=== PATIENT | female | born 1950 | race Caucasian/White ===

== ENCOUNTER 2016-12-27 19:59 | Emergency (ER) | payer BC ==
[~2016-12-27] VITALS: Ht 157.5 cm; Wt 82.6 kg
[~2016-12-27 19:59] MED LIST: SYN25 PO
[2016-12-27 20:08] VITALS: TEMP 36.4; Ht 157.5 cm; Wt 82.6 kg
[2016-12-27] MEDS ORDERED: METR-162 PO (20:41)
[2016-12-27] MEDS ORDERED: CPR/500 PO (20:41)
[2016-12-27 20:51] LABS: BASO % 0.2 %; BASO ABS # 0.02 K/uL (0-0.2); COMPLETE YES; EOS % 4.1 %; HEMATOCRIT 35.8 % (37-47); IG% 0.3 %; LYMPH % 15.6 %; LYMPH ABS # 1.49 K/uL (1.2-3.4); MEAN CELL VOLUME 86.9 fL (80-100); MEAN CORPUSCULAR HEMOGLOBIN 29.6 pg (25-34); MEAN CORPUSCULAR HGB CONC 34.1 g/dl (32-36); MEAN PLATELET VOLUME 10.1 fL (7.4-10.4); MONO % 10.9 %; NEUT % 68.9 %; PLATELET COUNT 228 K/uL (130-400); RED BLOOD COUNT 4.12 M/uL (4.2-5.4); WHITE BLOOD COUNT 9.58 K/uL (4.8-10.8)
[2016-12-27 21:07] LABS: URINE APPEARANCE CLEAR (CLEAR); URINE BILIRUBIN NEG (NEG); URINE COLOR YELLOW; URINE EPITHELIAL CELL AUTO >30 /lpf (0-5); URINE NITRITE NEG (NEG); URINE PH 5.5 (4.5-7.5); URINE SPECIFIC GRAVITY 1.023 (1.000-1.030); UROBILINOGEN NEG (NEG); ZZUR CULT IF INDIC CLEAN CATCH YES
[2016-12-27 21:09] LABS: BUN/CREATININE RATIO 23.7 (10-20); CALCIUM 8.9 mg/dl (8.5-10.1); CREATININE 0.87 mg/dl (0.60-1.20)
[2016-12-27 21:11] LABS: ALB/GLOB RATIO 0.9 (0.9-2)
[2016-12-27 21:11] LABS: MANUAL MICROSCOPIC REQUIRED? NO; REVIEW REQ? NO
[2016-12-27] MEDS ORDERED: MoRPHine SULFATE 2 MG/ML CARP IV STA (21:18)
[2016-12-27] MEDS ORDERED: ONDANSETRON INJ 2 MG/ML 2 ML VIAL IV STA (21:18)
[2016-12-27] MEDS ORDERED: SODIUM CHLORIDE 0.9% 1000ML 1,000 ML IV STA (21:18)
--- NOTE | 2016-12-27 21:21 | EMERGENCY ROOM VISIT NOTE ---
History Report prepared by Katt: Lefty Israel Under the Supervision of: Dr. Zohreh Mukherjee M.D. First contact with patient: 21:04 Chief Complaint: ABDOMINAL PAIN Stated Complaint: ABDOMEN PAIN, THROWING UP Nursing Triage Summary: pt c/o abd pain since the weekend. reports hx of diverticulitis. put on flagyl and cipro by PCP. pt reports today "i started vomiting, i don't know if it's from the medication or this." reports left sided pain radiating across to the right. pt alert and oriented x4. breathing WNL. History of Present Illness The patient is a 66 year old female who presents to the Emergency Room with complaints of LLQ abdominal pain that began a couple of days ago. The patient rates her pain moderate in severity. The patient has a history of diverticulitis. She was placed on Flagyl and Cipro by her PCP three days ago. She notes that she still does not feel any better today, with pain still in the area. She has been experiencing nausea, vomiting, and weakness. This last time she vomited was this morning at 0900. She believes the vomiting is from her antibiotics. She denies any fever, diarrhea, melena, or hematochezia. Source of History: patient Onset: a couple of days ago Position: abdomen (LLQ) Symptom Intensity: moderate Quality: ache Timing: constant Associated Symptoms: + nausea, + vomiting, No fevers, No melena, No hematochezia, No diarrhea Review of Systems See HPI for pertinent positives & negatives. A total of 10 systems reviewed and were otherwise negative. Past Medical & Surgical Medical Problems: (1) Deliveries by (2) Hypothyroidism (3) Vaginal hysterectomy Family History Omitted secondary to the patient's age. Social History Smoking Status: Never Smoker Smokeless Tobacco Use: No Alcohol Use: none Drug Use: none Marital Status: Occupation Status: employed Current/Historical Medications Scheduled Amoxicillin & Pot Clavulanate (Augmentin 875-125 mg), 875 MG PO BID Ciprofloxacin (Ciprofloxacin HCl), 500 MG PO BID Levothyroxine Sodium (Levothyroxine Sodium), 88 MCG PO DAILY Metronidazole (Flagyl), 500 MG PO TID Pseudoephedrine-Naproxen Sodiu (Aleve-D Sinus & Cold), 1 TAB PO DAILY Allergies Coded Allergies: No Known Allergies (Unverified , 12/27/16) Physical Exam Vital Signs Date Time Temp Pulse Resp B/P (MAP) Pulse Ox O2 Delivery O2 Flow Rate FiO2 12/27/16 23:03 73 17 97 12/27/16 22:04 82 18 147/83 97 Room Air 12/27/16 20:08 36.4 84 18 158/83 96 Room Air Physical Exam Vital signs reviewed. General: Well-appearing female, in no significant distress. HEENT: No scleral icterus, PERRLA, neck supple. Atraumatic. Cardiovascular: Regular rate and rhythm, no extra sounds. Pulmonary: Clear to auscultation bilaterally, normal work of breathing. Abdomen: Soft, tender to the left lower quadrant and epigastrium, obese, positive bowel sounds. Musculoskeletal: Atraumatic, no peripheral edema. Neurologic: Patient awake alert and oriented x 3, full strength in all 4 extremities. Cranial nerves 2 through 12 grossly intact. Skin: Warm, dry, no rash Medical Decision & Procedures ER Provider Diagnostic Interpretation: Radiology results as stated below per my review and radiologist interpretation: CT ABD/PELVIS IV CONTRAST ONLY CLINICAL HISTORY: Abdominal pain. Possible diverticulitis. COMPARISON STUDY: None. TECHNIQUE: Following the IV administration of 120 mL of Optiray-320, CT scan of the abdomen and pelvis was performed from the lung bases to the proximal femurs. Images are reviewed in the axial, sagittal, and coronal planes. IV contrast was administered without complication. A dose lowering technique was utilized adhering to the principles of ALARA. CT DOSE: 548.93 mGy.cm FINDINGS: Lower chest: There are basilar atelectatic changes. A 15 mm parenchymal opacity abutting the mediastinum with thin the right middle lobe, likely represents focal atelectatic change. Liver: The contrast-enhanced liver is normal in size, contour, and attenuation. There is no intrahepatic biliary ductal dilatation. The hepatic veins and portal veins are patent. Gallbladder: Unremarkable. Spleen: Normal in size and attenuation. Pancreas: Unremarkable. Adrenal glands: Unremarkable. Kidneys: There is symmetric renal cortical enhancement. The kidneys are normal in size without hydronephrosis. Bowel: There are no transition zones indicate bowel obstruction. By history the appendix is absent. There is colonic diverticulosis. There is colon wall thickening and infiltration of the fat at the descending sigmoid junction. The findings are consistent with acute diverticulitis. There are no fluid collections to indicate an abscess. Peritoneum: There is no intraperitoneal free air or abdominal ascites. Vasculature: The abdominal aorta is normal in course and caliber. Adenopathy: There are small nonpathologically enlarged para-aortic and left iliac lymph nodes. Pelvic viscera: The uterus appears surgically absent Skeletal structures: No destructive osseous lesions are seen. IMPRESSION: Acute diverticulitis at the descending sigmoid junction. Electronically signed by: Leland Preciado M.D. 12/27/2016 9:58 PM Dictated Date/Time: 12/27/2016 9:55 PM Laboratory Results 12/27/16 20:35 Red Blood Count 4.12, Mean Corpuscular Volume 86.9, Mean Corpuscular Hemoglobin 29.6, Mean Corpuscular Hemoglobin Concent 34.1, Mean Platelet Volume 10.1, Neutrophils (%) (Auto) 68.9, Lymphocytes (%) (Auto) 15.6, Monocytes (%) (Auto) 10.9, Eosinophils (%) (Auto) 4.1, Basophils (%) (Auto) 0.2, Neutrophils # (Auto ) 6.61, Lymphocytes # (Auto) 1.49, Monocytes # (Auto) 1.04, Eosinophils # (Auto ) 0.39, Basophils # (Auto) 0.02 12/27/16 20:35 Test 12/27/16 20:25 12/27/16 20:35 Urine Color YELLOW Urine Appearance CLEAR (CLEAR) Urine pH 5.5 (4.5-7.5) Urine Specific [place] 1.023 (1.000-1.030) Urine Protein NEG (NEG) Urine Glucose (UA) NEG (NEG) Urine Ketones NEG (NEG) Urine Occult Blood NEG (NEG) Urine Nitrite NEG (NEG) Urine Bilirubin NEG (NEG) Urine Urobilinogen NEG (NEG) Urine Leukocyte Esterase SMALL (NEG) Urine WBC (Auto) 10-30 /hpf (0-5) Urine RBC (Auto) 0-4 /hpf (0-4) Urine Hyaline Casts (Auto) 1-5 /lpf (0-5) Urine Epithelial Cells (Auto) >30 /lpf (0-5) Urine Bacteria (Auto) NEG (NEG) White Blood Count 9.58 K/uL (4.8-10.8) Red Blood Count 4.12 M/uL (4.2-5.4) Hemoglobin 12.2 g/dL (12.0-16.0) Hematocrit 35.8 % (37-47) Mean Corpuscular Volume 86.9 fL (80-100) Mean Corpuscular Hemoglobin 29.6 pg (25-34) Mean Corpuscular Hemoglobin Concent 34.1 g/dl (32-36) Platelet Count 228 K/uL (130-400) Mean Platelet Volume 10.1 fL (7.4-10.4) Neutrophils (%) (Auto) 68.9 % Lymphocytes (%) (Auto) 15.6 % Monocytes (%) (Auto) 10.9 % Eosinophils (%) (Auto) 4.1 % Basophils (%) (Auto) 0.2 % Neutrophils # (Auto) 6.61 K/uL (1.4-6.5) Lymphocytes # (Auto) 1.49 K/uL (1.2-3.4) Monocytes # (Auto) 1.04 K/uL (0.11-0.59) Eosinophils # (Auto) 0.39 K/uL (0-0.5) Basophils # (Auto) 0.02 K/uL (0-0.2) RDW Standard Deviation 42.9 fL (36.4-46.3) RDW Coefficient of Variation 13.4 % (11.5-14.5) Immature Granulocyte % (Auto) 0.3 % Immature Granulocyte # (Auto) 0.03 K/uL (0.00-0.02) Anion Gap 7.0 mmol/L (3-11) Est Creatinine Clear Calc Drug Dose 65.1 ml/min Estimated GFR () 81.6 Estimated GFR (Non- 70.4 BUN/Creatinine Ratio 23.7 (10-20) Calcium Level 8.9 mg/dl (8.5-10.1) Total Bilirubin 0.2 mg/dl (0.2-1) Aspartate Amino Transf (AST/SGOT) 16 U/L (15-37) Alanine Aminotransferase (ALT/SGPT) 17 U/L (12-78) Alkaline Phosphatase 103 U/L (45-117) Total Protein 6.8 gm/dl (6.4-8.2) Albumin 3.3 gm/dl (3.4-5.0) Globulin 3.5 gm/dl (2.5-4.0) Albumin/Globulin Ratio 0.9 (0.9-2) Lipase 146 U/L (73-393) Laboratory results per my review. Medications Administered Medications (Trade) Dose Ordered Sig/Mary Route Start Time Stop Time Status Last Admin Dose Admin Sodium Chloride 1,000 ml @ 999 mls/hr Q1H1M STAT IV 12/27/16 21:18 12/27/16 22:18 DC 12/27/16 21:30 999 MLS/HR Ondansetron HCl (Zofran Inj) 4 mg NOW STAT IV 12/27/16 21:18 12/27/16 21:20 DC 12/27/16 21:31 4 MG Ampicillin Sodium/ Sulbactam Sodium 3000 mg/Sodium Chloride 108 ml @ 200 mls/hr ONE ONCE IV 12/27/16 22:15 12/27/16 22:47 DC 12/27/16 22:24 200 MLS/HR ED Course 2103: Past medical records reviewed. The patient was evaluated in room A4. A complete history and physical examination was performed. 8: Ordered Morphine Sulfate 2 mg IV, Zofran Inj 4 mg IV, Sodium Chloride 1000 ml @ 999 mls/hr IV 5: Ordered Ampicillin Sodium/ Sulbactam Sodium 3,000 mg/Sodium 108 ml @ 200 mls/hr IV 2250: Upon reevaluation, the patient appeared to have improvement of her symptoms. I discussed findings with her. She verbalized agreement of the treatment plan. She was discharged home. Medical Decision Differential diagnosis: Etiologies such as appendicitis, diverticulitis, PUD, biliary pathology, UTI, pancreatitis, obstruction, mesenteric ischemia, aortic pathology, infections, inflammatory bowel disease, renal colic, as well as others were entertained. This patient was evaluated and appeared to be in some discomfort. IV access was obtained and laboratory work was drawn. The patient was hydrated with normal saline solution. She was medicated with Zofran for nausea. Laboratory work reveals a normal white blood cell count. CT scan of the abdomen and pelvis reveals an acute sigmoid diverticulitis. There is no perforation or abscess collection. Patient was given Unasyn 3 g IV. She was discharged with a prescription for Augmentin 875 mg twice a day for 7 days. She was advised to stop the Cipro and Flagyl as she does not seem to be tolerating this well. She will follow-up with her physician this week for reevaluation return to the ER for worsening of symptoms or any medical concerns. Medication Reconcilliation Current Medication List: was personally reviewed by me Blood Pressure Screening Patient's blood pressure: Elevated blood pressure Blood pressure disposition: Elevated BP felt to be situational Impression Primary Impression: Diverticulitis Scribe Attestation The scribe's documentation has been prepared under my direction and personally reviewed by me in its entirety. I confirm that the note above accurately reflects all work, treatment, procedures, and medical decision making performed by me. Departure Information Dispostion Home / Self-Care Prescriptions Amoxicillin & Pot Clavulanate (Augmentin 875-125 mg) 1 Tab Tab 875 MG PO BID for 7 Days, #14 TAB Prov: Zohreh Mukherjee M.D. 12/27/16 Referrals Kelsey Carty M.D. (PCP) Forms HOME CARE DOCUMENTATION FORM, IMPORTANT VISIT INFORMATION Patient Instructions Diverticulosis Diverticulitis, My [facility] Additional Instructions Diagnosis: Diverticulitis Stop cipro/flagyl as you are not tolerating it well. Augmentin 875 mg twice daily for 7 days. Maintain a low residue diet for 1 week Follow up with your doctor this week for reevaluation. Return to the ED for worsening of symptoms or any medical concerns.
[2016-12-27] MEDS ORDERED: OPTIRAY 320 IV PRN (21:30)
--- NOTE | 2016-12-27 22:00 | DIAGNOSTIC IMAGING REPORT ---
CT ABD/PELVIS IV CONTRAST ONLY CLINICAL HISTORY: Abdominal pain. Possible diverticulitis. COMPARISON STUDY: None. TECHNIQUE: Following the IV administration of 120 mL of Optiray-320, CT scan of the abdomen and pelvis was performed from the lung bases to the proximal femurs. Images are reviewed in the axial, sagittal, and coronal planes. IV contrast was administered without complication. A dose lowering technique was utilized adhering to the principles of ALARA. CT DOSE: 548.93 mGy.cm FINDINGS: Lower chest: There are basilar atelectatic changes. A 15 mm parenchymal opacity abutting the mediastinum with thin the right middle lobe, likely represents focal atelectatic change. Liver: The contrast-enhanced liver is normal in size, contour, and attenuation. There is no intrahepatic biliary ductal dilatation. The hepatic veins and portal veins are patent. Gallbladder: Unremarkable. Spleen: Normal in size and attenuation. Pancreas: Unremarkable. Adrenal glands: Unremarkable. Kidneys: There is symmetric renal cortical enhancement. The kidneys are normal in size without hydronephrosis. Bowel: There are no transition zones indicate bowel obstruction. By history the appendix is absent. There is colonic diverticulosis. There is colon wall thickening and infiltration of the fat at the descending sigmoid junction. The findings are consistent with acute diverticulitis. There are no fluid collections to indicate an abscess. Peritoneum: There is no intraperitoneal free air or abdominal ascites. Vasculature: The abdominal aorta is normal in course and caliber. Adenopathy: There are small nonpathologically enlarged para-aortic and left iliac lymph nodes. Pelvic viscera: The uterus appears surgically absent Skeletal structures: No destructive osseous lesions are seen. IMPRESSION: Acute diverticulitis at the descending sigmoid junction. Electronically signed by: Leland Preciado M.D. 12/27/2016 9:58 PM Dictated Date/Time: 12/27/2016 9:55 PM
[2016-12-27 22:04] VITALS: BP 147/83
[2016-12-27] MEDS ORDERED: AMPICILLIN/SULBACTAM SOD INJ 3,000 MG in SODIUM CHLORIDE 0.9% 100ML 100 ML IV ONE (22:15)
[2016-12-27] MEDS ORDERED: AMOX875T PO (22:32)
[2016-12-27 23:03] VITALS: PULSE 73; O2SAT 97
== END 2016-12-27 23:10 | disposition home or self-care (01) ==
LOC: C.EDB 20:01 → C.EDA 23:10
DX: K57.32 Diverticulitis of large intestine without perforation or abscess without bleeding (principal); E03.9 Hypothyroidism, unspecified

== ENCOUNTER 2017-01-05 17:39 | Emergency (ER) | payer BC ==
[~2017-01-05] VITALS: Ht 157.5 cm; Wt 81.8 kg
[~2017-01-05 17:39] MED LIST changes: +CPR/500 PO; +METR-162 PO; -SYN25 PO
[2017-01-05 17:50] VITALS: TEMP 37.1; Ht 157.5 cm; Wt 81.8 kg
[2017-01-05] MEDS ORDERED: IBUPROFEN 600 MG TAB PO STA (19:22)
[2017-01-05] MEDS ORDERED: METOCLOPRAMIDE HCL INJ 5 MG/ML 2 ML VIAL IV STA (19:22)
[2017-01-05] MEDS ORDERED: SODIUM CHLORIDE 0.9% 1000ML 1,000 ML IV STA (19:22)
[2017-01-05] MEDS ORDERED: ACETAMINOPHEN 500 MG TAB PO STA (19:22)
[2017-01-05] MEDS ORDERED: MoRPHine SULFATE 4 MG/ML 1 ML CARP\\VIAL IV STA (19:22)
--- NOTE | 2017-01-05 19:24 | EMERGENCY ROOM VISIT NOTE ---
History Report prepared by Katt: [facility] Under the Supervision of: Dr. Mushtaq Thorpe M.D. First contact with patient: 18:44 Chief Complaint: PAIN (GENERALIZED) Stated Complaint: BACK AND STOMACH PAIN History of Present Illness The patient is a 66 year old white female with a past medical history of hyperthyroidism who presents to the ED with a cc of worsening abdominal pain beginning 2 weeks [employer]. Positive left sided back pain, left leg pain, nausea, vomiting. Negative fever, diarrhea. She rates her pain as a 5/10 in severity. Aleve has provided no relief. She reports she had diverticulitis approximately 2 weeks ago and was placed on antibiotics. She finished the antibiotics and states "I never got better". She denies any history of Zoster. Source of History: patient Onset: 2 weeks [employer] Position: abdomen Symptom Intensity: 5/10 Timing: worsening Modifying Factors (Relieving): ibuprofen (Aleve) Associated Symptoms: + nausea, + vomiting, + back pain, No fevers, No diarrhea Review of Systems See HPI for pertinent positives and negatives. A total of ten systems were reviewed and were otherwise negative. Past Medical & Surgical Medical Problems: (1) Deliveries by (2) Hypothyroidism (3) Vaginal hysterectomy Social History Smoking Status: Never Smoker Alcohol Use: none Drug Use: none Marital Status: Housing Status: lives with family Occupation Status: employed Current/Historical Medications Scheduled Levothyroxine Sodium (Levothyroxine Sodium), 88 MCG PO DAILY Pseudoephedrine-Naproxen Sodiu (Aleve-D Sinus & Cold), 1 TAB PO DAILY Scheduled PRN Tramadol (Ultram), 50 MG PO Q8H PRN for Pain Allergies Coded Allergies: No Known Allergies (Unverified , 12/27/16) Physical Exam Vital Signs Date Time Temp Pulse Resp B/P (MAP) Pulse Ox O2 Delivery O2 Flow Rate FiO2 01/05/17 20:52 80 18 141/91 94 01/05/17 17:50 37.1 89 20 140/80 98 Room Air Physical Exam GENERAL: Awake, alert, well-appearing, NAD HENT: Normocephalic, atraumatic. EYES: Normal conjunctiva. Sclera non-icteric. NECK: Supple. No nuchal rigidity. FROM. RESPIRATORY: CTAB, no rhonchi, wheezing, crackles CARDIAC: RRR, no MRG ABDOMEN: Soft, diffuse mild abdominal pain, greatest in suprapubic area, negative obturator's and psoas, BS+ MSK: Left sided CVA tenderness to palpation. No chest wall TTP, no LE edema NEURO: GCS 15, CN 2-12 intact, moves all 4s on command SKIN: No jaundice noted. No erythema, no calor, no vesicles or rash present. Medical Decision & Procedures ER Provider Diagnostic Interpretation: Radiology results as stated below per my review and radiologist interpretation: ABD/PELVIS IV CONTRAST ONLY HISTORY: 66 years-old Female L sided CVATTP, diffuse ab pain acute generalized abdominal pain. Left flank pain dorsal reported. Initial study. COMPARISON: CT abdomen and pelvis 12/27/2016 TECHNIQUE: Multiple axial CT images of the abdomen and pelvis were obtained following the intravenous administration of 91 mL Optiray 320. A dose lowering technique was used consistent with the principals of SOURAV. FINDINGS: Minimal dependent bibasilar atelectasis. No pneumoperitoneum. Imaged heart is unremarkable. Liver, spleen, pancreas, gallbladder and adrenals are within normal limits. Kidneys, ureters, or bladder are unremarkable. Prior hysterectomy. Abdominal aorta is normal in course and caliber. No bulky adenopathy. No bowel junction. There is improved bowel wall thickening with only minimal persistent surrounding inflammatory stranding of the colon at the sigmoid descending junction compatible with resolving diverticulitis. No abscess or perforation. Prior appendectomy. Soft tissues are unremarkable. Bones are intact. IMPRESSION: 1. Findings compatible with resolving diverticulitis at the descending sigmoid colon junction with only minimal residual inflammatory changes. 2. Prior appendectomy. The above report was generated using voice recognition software. It may contain grammatical, syntax or spelling errors. Electronically signed by: Basil Grant M.D. 01/05/2017 8:17 PM Laboratory Results 01/05/17 19:40 Red Blood Count 4.67, Mean Corpuscular Volume 86.7, Mean Corpuscular Hemoglobin 28.5, Mean Corpuscular Hemoglobin Concent 32.8, Mean Platelet Volume 9.7, Neutrophils (%) (Auto) 66.6, Lymphocytes (%) (Auto) 21.5, Monocytes (%) (Auto) 7.7, Eosinophils (%) (Auto) 3.3, Basophils (%) (Auto) 0.6, Neutrophils # (Auto) 5.31, Lymphocytes # (Auto) 1.71, Monocytes # (Auto) 0.61, Eosinophils # (Auto) 0.26, Basophils # (Auto) 0.05 Test 01/05/17 19:30 01/05/17 19:40 01/05/17 19:46 Urine Color YELLOW Urine Appearance CLEAR (CLEAR) Urine pH 6.0 (4.5-7.5) Urine Specific [place] 1.016 (1.000-1.030) Urine Protein NEG (NEG) Urine Glucose (UA) NEG (NEG) Urine Ketones NEG (NEG) Urine Occult Blood NEG (NEG) Urine Nitrite NEG (NEG) Urine Bilirubin NEG (NEG) Urine Urobilinogen NEG (NEG) Urine Leukocyte Esterase NEG (NEG) Urine WBC (Auto) 1-5 /hpf (0-5) Urine RBC (Auto) 0-4 /hpf (0-4) Urine Hyaline Casts (Auto) 0 /lpf (0-5) Urine Epithelial Cells (Auto) 10-20 /lpf (0-5) Urine Bacteria (Auto) NEG (NEG) White Blood Count 7.96 K/uL (4.8-10.8) Red Blood Count 4.67 M/uL (4.2-5.4) Hemoglobin 13.3 g/dL (12.0-16.0) Hematocrit 40.5 % (37-47) Mean Corpuscular Volume 86.7 fL (80-100) Mean Corpuscular Hemoglobin 28.5 pg (25-34) Mean Corpuscular Hemoglobin Concent 32.8 g/dl (32-36) Platelet Count 263 K/uL (130-400) Mean Platelet Volume 9.7 fL (7.4-10.4) Neutrophils (%) (Auto) 66.6 % Lymphocytes (%) (Auto) 21.5 % Monocytes (%) (Auto) 7.7 % Eosinophils (%) (Auto) 3.3 % Basophils (%) (Auto) 0.6 % Neutrophils # (Auto) 5.31 K/uL (1.4-6.5) Lymphocytes # (Auto) 1.71 K/uL (1.2-3.4) Monocytes # (Auto) 0.61 K/uL (0.11-0.59) Eosinophils # (Auto) 0.26 K/uL (0-0.5) Basophils # (Auto) 0.05 K/uL (0-0.2) RDW Standard Deviation 43.5 fL (36.4-46.3) RDW Coefficient of Variation 13.7 % (11.5-14.5) Immature Granulocyte % (Auto) 0.3 % Immature Granulocyte # (Auto) 0.02 K/uL (0.00-0.02) Total Bilirubin 0.2 mg/dl (0.2-1) Direct Bilirubin < 0.1 mg/dl (0-0.2) Aspartate Amino Transf (AST/SGOT) 18 U/L (15-37) Alanine Aminotransferase (ALT/SGPT) 21 U/L (12-78) Alkaline Phosphatase 111 U/L (45-117) Total Protein 7.8 gm/dl (6.4-8.2) Albumin 3.8 gm/dl (3.4-5.0) Lipase 167 U/L (73-393) Bedside Hemoglobin 13.6 g/dl (12.0-16.0) Bedside Hematocrit 40 % (37-47) Bedside Sodium 139 mEq/L (135-144) Bedside Potassium 4.1 mEq/L (3.3-5.0) Bedside Chloride 102 mEq/L (101-112) Bedside Total CO2 27 mEq/l (24-31) Anion Gap 15.0 mmol/L (16-25) Bedside Blood Urea Nitrogen 21 mg/dl (7-18) Bedside Creatinine 0.9 mg/dl (0.6-1.3) Bedside Glucose (other) 96 mg/dl (70-99) Bedside Ionized Calcium (Danielle) 1.22 mmol/l (1.12-1.32) Laboratory results reviewed by me Medications Administered Medications (Trade) Dose Ordered Sig/Mary Route Start Time Stop Time Status Last Admin Dose Admin Sodium Chloride 1,000 ml @ 999 mls/hr Q1H1M STAT IV 01/05/17 19:22 01/05/17 20:22 DC 01/05/17 20:05 999 MLS/HR Metoclopramide HCl (Reglan Inj) 10 mg NOW STAT IV 01/05/17 19:22 01/05/17 19:26 DC 01/05/17 20:05 10 MG Ibuprofen (Motrin Tab) 600 mg NOW STAT PO 01/05/17 19:22 01/05/17 19:26 DC 01/05/17 20:04 600 MG Acetaminophen (Tylenol Tab) 1,000 mg NOW STAT PO 01/05/17 19:22 01/05/17 19:27 DC 01/05/17 20:05 1,000 MG ECG Indication: abdominal pain Rate (beats per minute): 78 Rhythm: normal sinus (normal sinus rhythm) Findings: Q waves (Single Q-wave in lead 3), no ectopy, other (normal intervals , no other STS changes or TWI) ED Course 1913: The patient was evaluated in room A3. A complete history and physical exam was performed. 1921: Acetaminophen 1000 mg PO, Ibuprofen 600 mg PO, Reglan 10 mg IV, NSS 1000 ml @ 999 mls/hr IV. 2029: I reevaluated the patient. She is feeling much better. I discussed her results and discharge instructions and she verbalized complete understanding and agreement. Medical Decision The patient is a 66 year old white female with a past medical history of hyperthyroidism who presents to the ED with a cc of worsening abdominal pain beginning 2 weeks [employer]. Positive left sided back pain, left leg pain, nausea, vomiting. Negative fever, diarrhea. Triage Nursing notes reviewed. The patient's presentation and history were concerning for appendicitis, diverticulitis, PUD, biliary pathology, UTI, pancreatitis, obstruction, mesenteric ischemia, aortic pathology, infections, inflammatory bowel disease, renal colic, as well as others were entertained. Patient seen and evaluated the bedside. Patient was complaining of pain to the back leg and abdomen. Patient did have mild suprapubic tenderness to palpation. Patient did have allodynia. Patient had no evidence of any skin manifestations. Patient did have blood work, UA, and CT that were completed. Patient had resolving changes of diverticulitis without any other acute abdominal pathology that was either medically or surgically emergent. Patient' s pain mildly improved. Patient was able to tolerate by mouth. Patient delivered without difficulty. Patient was told follow-up with her PCP. Patient was given strict follow-up, discharge, and return precautions. Patient agreed with plan of care patient was safely discharged home. Medication Reconcilliation Current Medication List: was personally reviewed by me Blood Pressure Screening Patient's blood pressure: Normal blood pressure Blood pressure disposition: Did not require urgent referral Impression Primary Impression: Generalized pain Additional Impression: Abdominal pain Scribe Attestation The scribe's documentation has been prepared under my direction and personally reviewed by me in its entirety. I confirm that the note above accurately reflects all work, treatment, procedures, and medical decision making performed by me. Departure Information Dispostion Home / Self-Care Prescriptions Tramadol (Ultram) 50 Mg Tab 50 MG PO Q8H Y for Pain, #9 TAB Prov: Mushtaq Thorpe M.D. 01/05/17 Referrals No Doctor, Assigned (PCP) Patient Instructions Abdominal Pain, My [facility] Additional Instructions Please return to the emergency department if you have worsening or recurrent symptoms not amenable to at-home treatment. Please call for a follow-up appointment with her primary care physician. Please take your medications as prescribed. If you have other concerns and/or complaints please feel free to also call your primary care physician's office or return the ED for further evaluation, management, and treatment. You may take 600 mg Ibuprofen every 6 hours as needed for pain with food for no more than 2 consecutive days. You may take tylenol 1000mg every 6 hours as needed for pain. You may take motrin and tylenol separately or at the same time. Take tramadol for breakthrough pain. Please discuss nerve pain w/ your PCP. Also consider obtaining a Zostavax vaccine for herpes zoster when you see your PCP. You have been examined and treated today on an emergency basis only. This is not a substitute for, or an effort to provide, complete comprehensive medical care. It is impossible to recognize and treat all injuries or illnesses in a single emergency department visit. It is therefore important that you follow up closely with [facility]. Call as soon as possible for an appointment. Thank you for your time and consideration. I look forward to speaking with you again soon. Please don't hesitate to call us if you have any questions. Problem Qualifiers Additional Impression: Abdominal pain Abdominal location: generalized Qualified Codes: R10.84 - Generalized abdominal pain
[2017-01-05] MEDS ORDERED: OPTIRAY 320 IV PRN (19:30)
[2017-01-05 19:54] LABS: BASO % 0.6 %; BASO ABS # 0.05 K/uL (0-0.2); COMPLETE YES; EOS % 3.3 %; HEMATOCRIT 40.5 % (37-47); IG% 0.3 %; LYMPH % 21.5 %; LYMPH ABS # 1.71 K/uL (1.2-3.4); MEAN CELL VOLUME 86.7 fL (80-100); MEAN CORPUSCULAR HEMOGLOBIN 28.5 pg (25-34); MEAN CORPUSCULAR HGB CONC 32.8 g/dl (32-36); MEAN PLATELET VOLUME 9.7 fL (7.4-10.4); MONO % 7.7 %; NEUT % 66.6 %; PLATELET COUNT 263 K/uL (130-400); RED BLOOD COUNT 4.67 M/uL (4.2-5.4); WHITE BLOOD COUNT 7.96 K/uL (4.8-10.8)
[2017-01-05 19:57] LABS: MANUAL MICROSCOPIC REQUIRED? NO; REVIEW REQ? NO; URINE APPEARANCE CLEAR (CLEAR); URINE BILIRUBIN NEG (NEG); URINE COLOR YELLOW; URINE NITRITE NEG (NEG); URINE SPECIFIC GRAVITY 1.016 (1.000-1.030); UROBILINOGEN NEG (NEG); ZZUR CULT IF INDIC CLEAN CATCH NO
[2017-01-05 19:59] LABS: ISTAT CREATININE 0.9 mg/dl (0.6-1.3); ISTAT HEMOGLOBIN 13.6 g/dl (12.0-16.0); ISTAT IONIZED CALCIUM 1.22 mmol/l (1.12-1.32)
--- NOTE | 2017-01-05 20:18 | DIAGNOSTIC IMAGING REPORT ---
ABD/PELVIS IV CONTRAST ONLY HISTORY: 66 years-old Female L sided CVATTP, diffuse ab pain acute generalized abdominal pain. Left flank pain dorsal reported. Initial study. COMPARISON: CT abdomen and pelvis 12/27/2016 TECHNIQUE: Multiple axial CT images of the abdomen and pelvis were obtained following the intravenous administration of 91 mL Optiray 320. A dose lowering technique was used consistent with the principals of SOURAV. FINDINGS: Minimal dependent bibasilar atelectasis. No pneumoperitoneum. Imaged heart is unremarkable. Liver, spleen, pancreas, gallbladder and adrenals are within normal limits. Kidneys, ureters, or bladder are unremarkable. Prior hysterectomy. Abdominal aorta is normal in course and caliber. No bulky adenopathy. No bowel junction. There is improved bowel wall thickening with only minimal persistent surrounding inflammatory stranding of the colon at the sigmoid descending junction compatible with resolving diverticulitis. No abscess or perforation. Prior appendectomy. Soft tissues are unremarkable. Bones are intact. IMPRESSION: 1. Findings compatible with resolving diverticulitis at the descending sigmoid colon junction with only minimal residual inflammatory changes. 2. Prior appendectomy. The above report was generated using voice recognition software. It may contain grammatical, syntax or spelling errors. Electronically signed by: Basil Grant M.D. 01/05/2017 8:17 PM Dictated Date/Time: 01/05/2017 8:14 PM
[2017-01-05 20:25] LABS: ALKALINE PHOSPHATASE 111 U/L (45-117); ALT/SGPT 21 U/L (12-78); AST/SGOT 18 U/L (15-37)
[2017-01-05] MEDS ORDERED: LEVO88TA3 PO (20:38)
[2017-01-05] MEDS ORDERED: TRAM-10 PO (20:44)
[2017-01-05] MEDS ORDERED: PSEU1TAB PO (20:45)
[2017-01-05 20:52] VITALS: BP 141/91; PULSE 80; O2SAT 94
== END 2017-01-05 20:53 | disposition home or self-care (01) ==
LOC: C.EDB 17:42 → C.EDA 20:53
DX: R52 Pain, unspecified (principal); R10.84 Generalized abdominal pain; E03.9 Hypothyroidism, unspecified; Z90.710 Acquired absence of both cervix and uterus

== ENCOUNTER 2017-01-07 09:03 | Emergency (ER) | payer BC ==
[~2017-01-07] VITALS: Ht 157.5 cm; Wt 81.9 kg
[~2017-01-07 09:03] MED LIST changes: -CPR/500 PO; +LEVO88TA3 PO; -METR-162 PO; +PSEU1TAB PO; +TRAM-10 PO
[2017-01-07 09:12] VITALS: BP 168/96; PULSE 86; TEMP 37; O2SAT 95; Ht 157.5 cm; Wt 81.9 kg
[2017-01-07] MEDS ORDERED: VALA1TAB2 PO (09:27)
[2017-01-07] MEDS ORDERED: OXYC1TAB3 PO (09:27)
--- NOTE | 2017-01-07 09:29 | EMERGENCY ROOM VISIT NOTE ---
ED Visit Note First contact with patient: 09:15 CHIEF COMPLAINT: Rash HISTORY OF PRESENT ILLNESS: This 66-year-old female patient presents to the emergency department ambulatory complaining of a rash left low back and hip which started today. The patient was seen here 2 days ago. She has had ongoing left flank pain and pain down the left leg. She had an extensive evaluation at that time. She had been prescribed tramadol which is not helping her pain. She states the rash developed today. The patient states the rash is painful and rates the discomfort as 6/10. No change in food, soap, detergents, or other environmental factors. No new medications. No weakness or numbness. REVIEW OF SYSTEMS: A 6 system review of systems was completed with positives and pertinent negatives listed in the HPI. ALLERGIES: No known drug allergies MEDICATIONS: Unchanged from previous PMH: Levothyroxine SOCIAL HISTORY: The patient does not smoke. She lives locally PHYSICAL EXAM: Vital Signs: Reviewed Nurse's notes, vital signs stable. GENERAL : This is a 66-year-old female, in no acute distress, well-developed, well- nourished. SKIN: There is a vesicular, cluster of vesicles, rash that follows along a lumbar dermatome on the left and does not cross the midline. Capillary refill less than 2 seconds. EMERGENCY DEPARTMENT COURSE: The patient was seen and examined. Previous visits were reviewed. The patient was seen here 2 days ago. At that time, the patient had left leg pain and pain down her left leg. It is likely that she had the neuralgia prior to developing the rash of zoster. She had been advised to watch for rash which developed today. Her symptoms otherwise not changed. She will be placed on Valtrex. She will be given a prescription for oxycodone. She states that the tramadol is not controlling her pain. Problem List Medical Problems: (1) Deliveries by Status: Resolved (2) Hypothyroidism Status: Chronic (3) Vaginal hysterectomy Status: Resolved Current/Historical Medications Scheduled Levothyroxine Sodium (Levothyroxine Sodium), 88 MCG PO DAILY Pseudoephedrine-Naproxen Sodiu (Aleve-D Sinus & Cold), 1 TAB PO DAILY Valacyclovir Hcl (Valtrex), 1,000 MG PO TID Scheduled PRN Oxycodone Ir (Roxicodone Ir), 1-2 TAB PO Q4H PRN for Pain Tramadol (Ultram), 50 MG PO Q8H PRN for Pain Allergies Coded Allergies: No Known Allergies (Unverified , 12/27/16) Vital Signs Date Time Temp Pulse Resp B/P (MAP) Pulse Ox O2 Delivery O2 Flow Rate FiO2 01/07/17 09:12 37.0 86 20 168/96 95 Room Air Departure Information Impression Primary Impression: Zoster Dispostion Home / Self-Care Condition GOOD Prescriptions Valacyclovir Hcl (VALTREX) 1 Gm Tab 1000 MG PO TID for 7 Days, #21 TAB Prov: Daija Richards PA-C 01/07/17 Oxycodone Ir (Roxicodone Ir) 5 Mg Tab 1-2 TAB PO Q4H Y for Pain, #36 TAB For Initial Treatment Prov: Daija Richards PA-C 01/07/17 Referrals No Doctor, Assigned (PCP) Forms HOME CARE DOCUMENTATION FORM, IMPORTANT VISIT INFORMATION, WORK / SCHOOL INSTRUCTIONS Patient Instructions [facility], Shingles Herpes Zoster Additional Instructions Valtrex every 8 hours for 7 days Oxy IR 1-2 tablets every 4-6 hrs as needed for worse pain. No driving or alcohol use with Oxy IR. Recheck with your family doctor in 3-5 days if symptoms are not improving Return with any worsening symptoms Keep the rash covered Work Instructions Return To Work: 2 days Problem Qualifiers Primary Impression: Zoster Herpes zoster complications: without complications Qualified Codes: B02.9 - Zoster without complications
== END 2017-01-07 09:45 | disposition home or self-care (01) ==
LOC: C.EDB 09:03
DX: B02.9 Zoster without complications (principal); E03.9 Hypothyroidism, unspecified

== ENCOUNTER 2017-01-17 20:45 | Emergency (ER) | payer BC ==
[~2017-01-17] VITALS: Ht 157.5 cm; Wt 83.2 kg
[~2017-01-17 20:45] MED LIST changes: +OXYC1TAB3 PO
[2017-01-17 20:48] VITALS: TEMP 36.9; Ht 157.5 cm; Wt 83.2 kg
[2017-01-17] MEDS ORDERED: SYN75 PO (21:23)
[2017-01-17] MEDS ORDERED: NAPR1TAB9 PO (21:23)
[2017-01-17] MEDS ORDERED: DPRSCR15 TOP (21:23)
[2017-01-17 21:24] VITALS: O2SAT 96
--- NOTE | 2017-01-17 21:41 | EMERGENCY ROOM VISIT NOTE ---
History Report prepared by Katt: Rakesh Carroll Under the Supervision of: Dr. Marcio Croft D.O. First contact with patient: 21:27 Chief Complaint: NEURO SYMPTOMS Stated Complaint: NUMD L SIDE Nursing Triage Summary: Pt reports she was diagnosed with shingles here in the ED. On antiviral and completed it. To see PCP today and PCP reported that everything was looking better. Pt has had off and on numbness since shingles started. Today the pt reports worse numbness in right leg, back, groin, hip, and slight in right upper arm. Denies weakness or gait changes. History of Present Illness The patient is a 66 year old female who presents to the Emergency Room with complaints of constant numbness in her left lower quadrant, left leg, and slightly in her left arm since around noon. The patient states that she was diagnosed with shingles two weeks ago, and this numbness is in similar areas except her arm. The patient denies any headache, weakness, or trouble walking. She additionally states that she has diverticulosis, and she has had a c- section and a hysterectomy in the past. She is taking medications for her thyroid, and she is not currently on any blood thinners. Source of History: patient Onset: noon Position: arm (left), abdomen (LLQ), leg (left) Quality: numbness Timing: constant Associated Symptoms: No headache Review of Systems See HPI for pertinent positives & negatives. A total of 10 systems reviewed and were otherwise negative. Past Medical & Surgical Medical Problems: (1) Deliveries by (2) Hypothyroidism (3) Vaginal hysterectomy Social History Smoking Status: Never Smoker Alcohol Use: none Drug Use: none Marital Status: Housing Status: lives with family Occupation Status: employed Current/Historical Medications Scheduled Levothyroxine Sodium (Synthroid), 75 MCG PO QAM Pseudoephedrine-Naproxen Sodiu (Aleve-D Sinus & Cold), 1 TAB PO DAILY Scheduled PRN Betamethasone Dip (Betamethasone Dipropionat), 1 APPLN TOP BID PRN for Naproxen (Aleve), 440 MG PO Q12 PRN for Pain Oxycodone Ir (Roxicodone Ir), 1-2 TAB PO Q4H PRN for Pain Tramadol (Ultram), 50 MG PO Q8H PRN for Pain Allergies Coded Allergies: No Known Allergies (Unverified , 01/17/17) Physical Exam Vital Signs Date Time Temp Pulse Resp B/P (MAP) Pulse Ox O2 Delivery O2 Flow Rate FiO2 01/17/17 23:09 68 16 125/92 94 Room Air 01/17/17 22:09 73 19 170/86 96 Room Air 01/17/17 21:39 81 01/17/17 21:24 96 Room Air 01/17/17 21:17 139/85 01/17/17 20:48 36.9 78 18 155/79 97 Room Air Physical Exam GENERAL: Patient is awake, alert, and in no acute distress. Patient is resting comfortably and showing no signs of anxiety EYES: The conjunctivae are clear. The pupils are round and reactive. EARS, NOSE, MOUTH AND THROAT: The nose is without any evidence of any deformity. Mucous membranes are moist tongue is midline NECK: The neck is nontender and supple. RESPIRATORY: Normal respiratory effort is noted there is no evidence of wheezing rhonchi or rales CARDIOVASCULAR: Regular rate and rhythm noted there no murmurs rubs or gallops normal S1 normal S2 GASTROINTESTINAL: The abdomen is soft. Bowel sounds are present in all quadrants. Abdomen is nontender MUSCULOSKELETAL/EXTREMITIES: There is no evidence of gross deformity full range of motion is noted in the hips and shoulders SKIN: There is a healing rash over the left flank into the left lower quadrant with the appearance of shingles. 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 No facial droop appreciated. Medical Decision & Procedures ER Provider Diagnostic Interpretation: Radiology results as stated below per my review and radiologist interpretation: CT OF THE HEAD WITHOUT CONTRAST CLINICAL HISTORY: Altered mental status. Weakness. COMPARISON STUDY: No previous studies for comparison. CT DOSE: 601.98 mGy.cm TECHNIQUE: Helical axial images of the head were obtained without IV contrast. Automated exposure control was utilized for the study. A dose lowering technique was utilized adhering to the principles of ALARA. FINDINGS: No acute intracranial hemorrhage, midline shift or mass effect is present. Ventricular system is normal. Basilar cisterns are patent. There are no extra-axial collections. [place]-white differentiation is maintained. Mild white matter hypodensities likely reflect small vessel disease. There are no findings to suggest acute dural sinus thrombosis or acute territorial infarct. There are no significant calvarial abnormalities. IMPRESSION: No acute intracranial findings. Electronically signed by: Gabriele Archibald M.D. 01/17/2017 9:48 PM Dictated Date/Time: 01/17/2017 9:46 PM CHEST ONE VIEW PORTABLE CLINICAL HISTORY: Altered mental status. Weakness. COMPARISON STUDY: No previous studies for comparison. FINDINGS: Lung volumes are normal. No pneumothorax or pleural effusion is present. Linear left basilar opacity is suggestive of atelectasis or scarring. Cardiomediastinal silhouette is normal. There is no evidence of pulmonary edema. IMPRESSION: No acute cardiopulmonary findings. Electronically signed by: Gabriele Archibald M.D. 01/17/2017 10:18 PM Dictated Date/Time: 01/17/2017 10:17 PM Laboratory Results 01/17/17 22:05 Red Blood Count 4.47, Mean Corpuscular Volume 86.4, Mean Corpuscular Hemoglobin 29.1, Mean Corpuscular Hemoglobin Concent 33.7, Mean Platelet Volume 10.0, Neutrophils (%) (Auto) 58.7, Lymphocytes (%) (Auto) 23.4, Monocytes (%) (Auto) 11.4, Eosinophils (%) (Auto) 5.4, Basophils (%) (Auto) 1.0, Neutrophils # (Auto ) 4.60, Lymphocytes # (Auto) 1.83, Monocytes # (Auto) 0.89, Eosinophils # (Auto ) 0.42, Basophils # (Auto) 0.08 01/17/17 22:05 Test 01/17/17 21:55 01/17/17 22:05 Urine Color DK YELLOW Urine Appearance CLEAR (CLEAR) Urine pH 5.5 (4.5-7.5) Urine Specific [employer] 1.027 (1.000-1.030) Urine Protein NEG (NEG) Urine Glucose (UA) NEG (NEG) Urine Ketones NEG (NEG) Urine Occult Blood NEG (NEG) Urine Nitrite NEG (NEG) Urine Bilirubin NEG (NEG) Urine Urobilinogen NEG (NEG) Urine Leukocyte Esterase NEG (NEG) White Blood Count 7.83 K/uL (4.8-10.8) Red Blood Count 4.47 M/uL (4.2-5.4) Hemoglobin 13.0 g/dL (12.0-16.0) Hematocrit 38.6 % (37-47) Mean Corpuscular Volume 86.4 fL (80-100) Mean Corpuscular Hemoglobin 29.1 pg (25-34) Mean Corpuscular Hemoglobin Concent 33.7 g/dl (32-36) Platelet Count 232 K/uL (130-400) Mean Platelet Volume 10.0 fL (7.4-10.4) Neutrophils (%) (Auto) 58.7 % Lymphocytes (%) (Auto) 23.4 % Monocytes (%) (Auto) 11.4 % Eosinophils (%) (Auto) 5.4 % Basophils (%) (Auto) 1.0 % Neutrophils # (Auto) 4.60 K/uL (1.4-6.5) Lymphocytes # (Auto) 1.83 K/uL (1.2-3.4) Monocytes # (Auto) 0.89 K/uL (0.11-0.59) Eosinophils # (Auto) 0.42 K/uL (0-0.5) Basophils # (Auto) 0.08 K/uL (0-0.2) RDW Standard Deviation 42.5 fL (36.4-46.3) RDW Coefficient of Variation 13.8 % (11.5-14.5) Immature Granulocyte % (Auto) 0.1 % Immature Granulocyte # (Auto) 0.01 K/uL (0.00-0.02) Anion Gap 3.0 mmol/L (3-11) Est Creatinine Clear Calc Drug Dose 74.8 ml/min Estimated GFR () 96.1 Estimated GFR (Non- 82.9 BUN/Creatinine Ratio 27.4 (10-20) Calcium Level 9.3 mg/dl (8.5-10.1) Magnesium Level 2.3 mg/dl (1.8-2.4) Total Bilirubin 0.3 mg/dl (0.2-1) Direct Bilirubin < 0.1 mg/dl (0-0.2) Aspartate Amino Transf (AST/SGOT) 20 U/L (15-37) Alanine Aminotransferase (ALT/SGPT) 18 U/L (12-78) Alkaline Phosphatase 108 U/L (45-117) Troponin I < 0.015 ng/ml (0-0.045) Total Protein 7.5 gm/dl (6.4-8.2) Albumin 3.8 gm/dl (3.4-5.0) Thyroid Stimulating Hormone (TSH) 6.570 uIu/ml (0.300-4.500) Laboratory results per my review. ECG Indication: other (numbness) Rate (beats per minute): 72 Rhythm: normal sinus Findings: no ectopy, other (No ST segment abnormality) Comparison ECG Date: 01/05/17 Change: no significant change ED Course 2126: The patient was evaluated in room B10. A complete history and physical examination were performed. 2300: Upon reevaluation, the patient is doing well. I discussed the results and treatment plan with her. She verbalized agreement of the treatment plan. She was discharged home. Medical Decision Differential diagnosis: Etiologies such as metabolic, infection, hypo/hyperglycemia, electrolyte abnormalities, cardiac sources, intracerebral event, toxicologic, neurologic, as well as others were entertained. Nursing notes reviewed. The patient is a 66-year-old female who presented to the emergency department for an evaluation of left leg numbness. She states that this begins at the area where she currently is being treated for shingles. She has a rash which appears to be consistent with shingles. The patient has what appears to be postherpetic neuralgia in that area. I discussed the patient's laboratory and radiographic studies with her and her significant other. This does not appear to be consistent with a central nervous system issue although she does have some upper extremity complaints. Overall I do feel the patient may require further follow-up and possibly even treatment for postherpetic neuralgia but at this time I do not feel the patient requires any specific treatment. She was encouraged to follow-up with the primary care physician as soon as possible return to the emergency department immediately if symptoms change worsen or the need arises. Medication Reconcilliation Current Medication List: was personally reviewed by me Blood Pressure Screening Patient's blood pressure: Elevated blood pressure Blood pressure disposition: Elevated BP felt to be situational Impression Primary Impression: Left leg numbness Additional Impressions: Shingles Postherpetic neuralgia Scribe Attestation The scribe's documentation has been prepared under my direction and personally reviewed by me in its entirety. I confirm that the note above accurately reflects all work, treatment, procedures, and medical decision making performed by me. Departure Information Dispostion Home / Self-Care Referrals Ricotta, Candy M., DO (PCP) Forms HOME CARE DOCUMENTATION FORM, IMPORTANT VISIT INFORMATION, WORK / SCHOOL INSTRUCTIONS Patient Instructions My [facility], Shingles Herpes Zoster Additional Instructions Call your family in the morning to schedule a follow-up appointment. Rest and avoid any strenuous activity. Discussed the possibility with your family doctor that you may require further studies and also the possibility that you may need to be started on medications for postherpetic neuralgia from the shingles. Problem Qualifiers Additional Impressions: Shingles Herpes zoster complications: unspecified herpes zoster complication Qualified Codes: B02.8 - Zoster with other complications
--- NOTE | 2017-01-17 21:50 | DIAGNOSTIC IMAGING REPORT ---
CT OF THE HEAD WITHOUT CONTRAST CLINICAL HISTORY: Altered mental status. Weakness. COMPARISON STUDY: No previous studies for comparison. CT DOSE: 601.98 mGy.cm TECHNIQUE: Helical axial images of the head were obtained without IV contrast. Automated exposure control was utilized for the study. A dose lowering technique was utilized adhering to the principles of ALARA. FINDINGS: No acute intracranial hemorrhage, midline shift or mass effect is present. Ventricular system is normal. Basilar cisterns are patent. There are no extra-axial collections. [place]-white differentiation is maintained. Mild white matter hypodensities likely reflect small vessel disease. There are no findings to suggest acute dural sinus thrombosis or acute territorial infarct. There are no significant calvarial abnormalities. IMPRESSION: No acute intracranial findings. Electronically signed by: Gabriele Archibald M.D. 01/17/2017 9:48 PM Dictated Date/Time: 01/17/2017 9:46 PM
--- NOTE | 2017-01-17 22:19 | DIAGNOSTIC IMAGING REPORT ---
CHEST ONE VIEW PORTABLE CLINICAL HISTORY: Altered mental status. Weakness. COMPARISON STUDY: No previous studies for comparison. FINDINGS: Lung volumes are normal. No pneumothorax or pleural effusion is present. Linear left basilar opacity is suggestive of atelectasis or scarring. Cardiomediastinal silhouette is normal. There is no evidence of pulmonary edema. IMPRESSION: No acute cardiopulmonary findings. Electronically signed by: Gabriele Archibald M.D. 01/17/2017 10:18 PM Dictated Date/Time: 01/17/2017 10:17 PM
[2017-01-17 22:21] LABS: BASO ABS # 0.08 K/uL (0-0.2); COMPLETE YES; EOS % 5.4 %; HEMATOCRIT 38.6 % (37-47); IG% 0.1 %; LYMPH % 23.4 %; LYMPH ABS # 1.83 K/uL (1.2-3.4); MEAN CELL VOLUME 86.4 fL (80-100); MEAN CORPUSCULAR HEMOGLOBIN 29.1 pg (25-34); MEAN CORPUSCULAR HGB CONC 33.7 g/dl (32-36); MONO % 11.4 %; NEUT % 58.7 %; PLATELET COUNT 232 K/uL (130-400); RED BLOOD COUNT 4.47 M/uL (4.2-5.4); WHITE BLOOD COUNT 7.83 K/uL (4.8-10.8)
[2017-01-17 22:42] LABS: ALT/SGPT 18 U/L (12-78); BLOOD UREA NITROGEN 21 mg/dl (7-18); BUN/CREATININE RATIO 27.4 (10-20); CALCIUM 9.3 mg/dl (8.5-10.1); CARBON DIOXIDE 28 mmol/L (21-32); CHLORIDE 108 mmol/L (98-107); CREATININE 0.76 mg/dl (0.60-1.20); GLUCOSE 88 mg/dl (70-99); MAGNESIUM 2.3 mg/dl (1.8-2.4); POTASSIUM 3.7 mmol/L (3.5-5.1); SODIUM 139 mmol/L (136-145)
[2017-01-17 22:50] LABS: URINE APPEARANCE CLEAR (CLEAR); URINE BILIRUBIN NEG (NEG); URINE COLOR DK YELLOW; URINE NITRITE NEG (NEG); URINE PH 5.5 (4.5-7.5); URINE SPECIFIC GRAVITY 1.027 (1.000-1.030); UROBILINOGEN NEG (NEG)
[2017-01-17 22:53] LABS: ALKALINE PHOSPHATASE 108 U/L (45-117); AST/SGOT 20 U/L (15-37)
[2017-01-17 22:54] LABS: MANUAL MICROSCOPIC REQUIRED? NO; REVIEW REQ? NO
[2017-01-17 23:09] VITALS: BP 125/92; PULSE 68; O2SAT 94
== END 2017-01-17 23:25 | disposition home or self-care (01) ==
LOC: C.EDB 20:46
DX: R20.2 Paresthesia of skin (principal); B02.9 Zoster without complications; B02.29 Other postherpetic nervous system involvement; E03.9 Hypothyroidism, unspecified; Z79.899 Other long term (current) drug therapy

== ENCOUNTER → 2017-02-19 | Outpatient (CLI) | payer BC ==
[~2017-02-19] MED LIST changes: +DPRSCR15 TOP; -LEVO88TA3 PO; +NAPR1TAB9 PO; +SYN75 PO
[2017-02-19 17:52] LABS: HEMATOCRIT 40.5 % (37-47); MEAN CELL VOLUME 89.8 fL (80-100); MEAN CORPUSCULAR HEMOGLOBIN 29.3 pg (25-34); MEAN CORPUSCULAR HGB CONC 32.6 g/dl (32-36); MEAN PLATELET VOLUME 10.7 fL (7.4-10.4); PLATELET COUNT 256 K/uL (130-400); RED BLOOD COUNT 4.51 M/uL (4.2-5.4); WHITE BLOOD COUNT 8.81 K/uL (4.8-10.8)
[2017-02-19 18:06] LABS: BLOOD UREA NITROGEN 20 mg/dl (7-18); BUN/CREATININE RATIO 22.2 (10-20); CALCIUM 9.8 mg/dl (8.5-10.1); CARBON DIOXIDE 27 mmol/L (21-32); CHLORIDE 102 mmol/L (98-107); CHOLESTEROL 196 mg/dl (0-200); CREATININE 0.88 mg/dl (0.60-1.20); GLUCOSE 91 mg/dl (70-99); POTASSIUM 4.1 mmol/L (3.5-5.1); SODIUM 138 mmol/L (136-145)
[2017-02-19 18:16] LABS: CHOLESTEROL/HDL RATIO 1.8; HDL CHOLESTEROL 111 mg/dl; LDL CHOLESTEROL CALCULATED 73 mg/dl; TRIGLYCERIDES 61 mg/dl (0-150); VERY LOW DENSITY LIPOPROT CALC 12 mg/dl
== END | disposition home or self-care (01) ==
LOC: C.LABPBG 11:15
PROVIDERS: ATTEND Family Medicine
DX: Z11.59 Encounter for screening for other viral diseases (principal); E03.9 Hypothyroidism, unspecified; Z13.220 Encounter for screening for lipoid disorders; Z00.00 Encounter for general adult medical examination without abnormal findings

== ENCOUNTER 2017-04-16 08:52 | Emergency (ER) | payer BC ==
[~2017-04-16] VITALS: Ht 157.5 cm; Wt 83.0 kg
[~2017-04-16 08:52] MED LIST changes: -DPRSCR15 TOP; +LEVO88TA PO; -OXYC1TAB3 PO; -PSEU1TAB PO; -SYN75 PO; -TRAM-10 PO; +[UNRECOGNIZED DRUG - CODE] PO
[2017-04-16 09:05] VITALS: TEMP 37; Ht 157.5 cm; Wt 83.0 kg
[2017-04-16] MEDS ORDERED: LISI10TA PO (09:30)
[2017-04-16] MEDS ORDERED: SODIUM CHLORIDE 0.9% 500ML 500 ML IV STA (09:54)
--- NOTE | 2017-04-16 10:09 | DIAGNOSTIC IMAGING REPORT ---
CHEST ONE VIEW PORTABLE CLINICAL HISTORY: cough COMPARISON STUDY: 01/17/2017 FINDINGS: The cardiac and mediastinal contours are normal. There is no evidence of focal pulmonary consolidation. There is no evidence of failure. No pleural effusions are visualized.[ IMPRESSION: No active disease in the chest. Electronically signed by: Leland Preciado M.D. 04/16/2017 10:08 AM Dictated Date/Time: 04/16/2017 10:07 AM
[2017-04-16 10:38] LABS: BASO % 0.7 %; BASO ABS # 0.05 K/uL (0-0.2); EOS % 7.1 %; EOS ABS # 0.52 K/uL (0-0.5); HEMATOCRIT 39.1 % (37-47); IG# 0.01 K/uL (0.00-0.02); LYMPH % 20.1 %; LYMPH ABS # 1.48 K/uL (1.2-3.4); MEAN CELL VOLUME 88.1 fL (80-100); MEAN CORPUSCULAR HEMOGLOBIN 29.3 pg (25-34); MEAN CORPUSCULAR HGB CONC 33.2 g/dl (32-36); MEAN PLATELET VOLUME 10.2 fL (7.4-10.4); MONO % 8.3 %; MONO ABS # 0.61 K/uL (0.11-0.59); NEUT % 63.7 %; NEUT ABS # 4.68 K/uL (1.4-6.5); PLATELET COUNT 243 K/uL (130-400); RED CELL DISTRIBUTION WIDTH CV 13.7 % (11.5-14.5); RED CELL DISTRIBUTION WIDTH SD 44.1 fL (36.4-46.3); WHITE BLOOD COUNT 7.35 K/uL (4.8-10.8)
[2017-04-16 10:55] LABS: CALCIUM 9.3 mg/dl (8.5-10.1); CREATININE 0.8 mg/dl (0.60-1.20); POTASSIUM 3.7 mmol/L (3.5-5.1)
[2017-04-16 11:41] LABS: INFLUENZA B ANTIGEN Neg for Influ B (NEG)
[2017-04-16] MEDS ORDERED: HYDR5SYP11 PO (12:11)
[2017-04-16] MEDS ORDERED: AZIT-57 PO (12:11)
[2017-04-16 12:33] VITALS: BP 152/103; PULSE 76; O2SAT 96
--- NOTE | 2017-04-16 13:46 | EMERGENCY ROOM VISIT NOTE ---
History Report prepared by Katt: Rakesh Carroll Under the Supervision of: Dr. Enrique Pedro D.O. First contact with patient: 09:27 Chief Complaint: CONGESTION Stated Complaint: SINUS AND CHEST CONGESTION Nursing Triage Summary: patient c/o cough and chest congestion since 04/09/17 patient went to PCP and was given an inhaler and started on a new blood pressure medication. patient went to urgent care on sunday and was given inhaler and tessalon pereles. patient states BP is fine but patient c/o increased cough and inhaler and tessalon pereles has not been helping. denies fever hx. shingles in january 2017 History of Present Illness The patient is a 66 year old female who presents to the Emergency Room with complaints of constant congestion starting on April 09. The patient states that the symptoms started with sinus congestion and a stuffy nose. She states that she then went to her PCP on the , and she was prescribed lisinopril, and she states that afterwards she has been having a cough since then. She notes that she is bringing up yellow phlegm. She additionally notes that she lost her voice 3-4 days ago, and her ears have been bothering her. She also has been having some shortness of breath and rib pain due to the coughing. The patient states that she went to acute care two days ago, and she was told that it was a virus and was given an inhaler. She reports that the inhaler does not help very much. Source of History: patient Onset: April 09 Position: other (sinus) Quality: other (congestion) Timing: constant Associated Symptoms: + cough, + SOB Note: Associated symptoms: Lost voice, ear discomfort, and rib pain Review of Systems See HPI for pertinent positives & negatives. A total of 10 systems reviewed and were otherwise negative. Past Medical & Surgical Medical Problems: (1) Deliveries by (2) Hypothyroidism (3) Vaginal hysterectomy Social History Smoking Status: Never Smoker Alcohol Use: none Drug Use: none Marital Status: Housing Status: lives with family Occupation Status: employed Current/Historical Medications Scheduled Azithromycin (Azithromycin), 250 MG PO DAILY Levothyroxine Sodium (Synthroid), 88 MCG PO QAM Lisinopril (Prinivil), 10 MG PO DAILY Scheduled PRN Hydrocodone W/ Homatropine (Hycodan 5/1.5MG 5 Ml), 5 ML PO HS PRN for Cough Allergies Coded Allergies: Adhesives (Verified Allergy, Unknown, SKIN IRRITATION, 04/16/17) NO KNOWN DRUG ALLERGIES (Verified Allergy, Unknown, ., 04/16/17) Physical Exam Vital Signs Date Time Temp Pulse Resp B/P (MAP) Pulse Ox O2 Delivery O2 Flow Rate FiO2 04/16/17 12:33 76 19 152/103 96 04/16/17 10:50 82 16 168/88 98 Room Air 04/16/17 09:08 98 Room Air 04/16/17 09:05 37.0 89 20 137/88 94 Room Air Physical Exam GENERAL: Sitting up in bed, dry non productive cough, hoarse, voice, no acute distress, non-toxic EYE EXAM: normal conjunctiva. OROPHARYNX: erythema in the posterior oropharynx, no exudate, lips, buccal mucosa, and tongue normal and mucous membranes are moist NECK: supple, no nuchal rigidity, no adenopathy, non-tender, no JVD LUNGS: Faint wheezing at bilateral bases, Normal chest wall mechanics HEART: no murmurs, S1 normal and S2 normal ABDOMEN: abdomen soft, non-tender, normo-active bowel sounds, no masses, no rebound or guarding. BACK: Back is symmetrical on inspection and there is no deformity, no midline tenderness, no CVA tenderness. SKIN: no rashes and no bruising UPPER EXTREMITIES: upper extremities are grossly normal. LOWER EXTREMITIES: No pitting edema. NEURO EXAM: Normal sensorium, cranial nerves II-XII grossly intact, normal speech, no gross weakness of arms, no gross weakness of legs. Gross sensation intact. Medical Decision & Procedures ER Provider Diagnostic Interpretation: Radiology results as stated below per my review and the radiologist's interpretation: CHEST ONE VIEW PORTABLE CLINICAL HISTORY: cough COMPARISON STUDY: 01/17/2017 FINDINGS: The cardiac and mediastinal contours are normal. There is no evidence of focal pulmonary consolidation. There is no evidence of failure. No pleural effusions are visualized.[ IMPRESSION: No active disease in the chest. Electronically signed by: Leland Preciado M.D. 04/16/2017 10:08 AM Dictated Date/Time: 04/16/2017 10:07 AM Laboratory Results 04/16/17 10:15 Red Blood Count 4.44, Mean Corpuscular Volume 88.1, Mean Corpuscular Hemoglobin 29.3, Mean Corpuscular Hemoglobin Concent 33.2, Mean Platelet Volume 10.2, Neutrophils (%) (Auto) 63.7, Lymphocytes (%) (Auto) 20.1, Monocytes (%) (Auto) 8.3, Eosinophils (%) (Auto) 7.1, Basophils (%) (Auto) 0.7, Neutrophils # (Auto) 4.68, Lymphocytes # (Auto) 1.48, Monocytes # (Auto) 0.61, Eosinophils # (Auto) 0.52, Basophils # (Auto) 0.05 04/16/17 10:15 Test 04/16/17 10:15 White Blood Count 7.35 K/uL (4.8-10.8) Red Blood Count 4.44 M/uL (4.2-5.4) Hemoglobin 13.0 g/dL (12.0-16.0) Hematocrit 39.1 % (37-47) Mean Corpuscular Volume 88.1 fL (80-100) Mean Corpuscular Hemoglobin 29.3 pg (25-34) Mean Corpuscular Hemoglobin Concent 33.2 g/dl (32-36) Platelet Count 243 K/uL (130-400) Mean Platelet Volume 10.2 fL (7.4-10.4) Neutrophils (%) (Auto) 63.7 % Lymphocytes (%) (Auto) 20.1 % Monocytes (%) (Auto) 8.3 % Eosinophils (%) (Auto) 7.1 % Basophils (%) (Auto) 0.7 % Neutrophils # (Auto) 4.68 K/uL (1.4-6.5) Lymphocytes # (Auto) 1.48 K/uL (1.2-3.4) Monocytes # (Auto) 0.61 K/uL (0.11-0.59) Eosinophils # (Auto) 0.52 K/uL (0-0.5) Basophils # (Auto) 0.05 K/uL (0-0.2) RDW Standard Deviation 44.1 fL (36.4-46.3) RDW Coefficient of Variation 13.7 % (11.5-14.5) Immature Granulocyte % (Auto) 0.1 % Immature Granulocyte # (Auto) 0.01 K/uL (0.00-0.02) Anion Gap 7.0 mmol/L (3-11) Est Creatinine Clear Calc Drug Dose 71.0 ml/min Estimated GFR () 90.3 Estimated GFR (Non- 77.9 BUN/Creatinine Ratio 14.0 (10-20) Calcium Level 9.3 mg/dl (8.5-10.1) Influenza Type A Antigen Neg for Influ A (NEG) Influenza Type B Antigen Neg for Influ B (NEG) Laboratory results per my review. Medications Administered Medications (Trade) Dose Ordered Sig/Mary Route Start Time Stop Time Status Last Admin Dose Admin Sodium Chloride 500 ml @ 999 mls/hr Q31M STAT IV 04/16/17 09:54 04/16/17 10:24 DC 04/16/17 10:16 999 MLS/HR ECG Indication: SOB/dyspnea Rate (beats per minute): 80 Rhythm: sinus rhythm Findings: no ectopy, other (normal axis) ED Course ED COURSE: Vital signs were reviewed and showed situational hypertension The patients medical record was reviewed The above diagnostic studies were performed and reviewed. ED treatments and interventions as stated above. 0927: The patient was evaluated in room C3. A complete history and physical examination was performed. 0954: Sodium Chloride 500 ml @ 999 mls/hr IV 1208: Upon reevaluation, the patient is doing well.I discussed my findings with the patient and she understands and agrees with the treatment plan. Based on the patients age, coexisting illnesses, exam and lab findings the decision to treat as an outpatient was made. The patient remained stable while under my care. The patient appeared well at the time of discharge. Medical Decision Differential diagnoses includes but is not limited to pneumonia, bronchitis, COPD/Asthma exacerbation, pneumothorax, pulmonary embolism, congestive heart failure, acute coronary syndrome. Patient is a 66-year-old female who presents to ER with a stuffy nose, cough and yellow productive sputum associated with a hoarse voice for the past 3-4 days. Symptoms have been present since the first of the year. CBC along with BMP was unremarkable. Influenza was unremarkable as well. Chest x-ray shows no infiltrate. EKG was unremarkable. Based on symptoms this does suggest that this is likely a bronchitis. She was given Augmentin. [place] to help with coughing and sleeping at night. Patient was discharged follow-up with PCP as an outpatient with a clear bronchitis. Discussed with Pt concerning signs and symptoms to watch out for. Pt was instructed to follow up with their PCP and discussed with the patient their option to return to the ED at anytime for persistent or worsening symptoms. The appropriate anticipatory guidance and out- patient management, including indications for return to the emergency department , were explained at length to the patient and understood. [place] Drug Monitoring Program Search Results: patient reviewed within database, no issues identified Medication Reconcilliation Current Medication List: was personally reviewed by me Blood Pressure Screening Patient's blood pressure: Elevated blood pressure Blood pressure disposition: Elevated BP felt to be situational Impression Primary Impression: Bronchitis Scribe Attestation The scribe's documentation has been prepared under my direction and personally reviewed by me in its entirety. I confirm that the note above accurately reflects all work, treatment, procedures, and medical decision making performed by me. Departure Information Dispostion Home / Self-Care Prescriptions Azithromycin (Azithromycin) 250 Mg Tab 250 MG PO DAILY for 4 Days Prov: Enrique Pedro, 04/16/17 Hydrocodone W/ Homatropine (HYCODAN 5/1.5MG 5 ML) 1 Syp Syp 5 ML PO HS Y for Cough, #20 ML Prov: Enrique Pedro, 04/16/17 Referrals Candy Barajas DO (PCP) Forms HOME CARE DOCUMENTATION FORM, IMPORTANT VISIT INFORMATION Patient Instructions Bronchitis Acute, My [facility] [address] Additional Instructions Please follow up with your primary care doctor or if you are a student, [facility] with in the next 24 hours. Any worsening of your symptoms, please return to the ED immediately. This includes any fevers greater than 100.4, worsening pain, chest pain, shortness breath, persistent nausea, vomiting, unable to eat or drink, or any other concerning signs or symptoms from your standpoint. You were also given a prescription for a narcotic. While taking this medication you should also not drive, operate machinery and or work. Please do NOT drive, operate machinery or work for the next 12hrs following taking the cough medication.
== END 2017-04-16 12:34 | disposition home or self-care (01) ==
LOC: C.EDB 08:53 → C.EDC 12:34
DX: J40 Bronchitis, not specified as acute or chronic (principal); E03.9 Hypothyroidism, unspecified

== ENCOUNTER → 2017-04-26 | Outpatient (CLI) | payer BC ==
[~2017-04-26] MED LIST changes: +ALBINS/ INH; +HYDR5SYP11 PO; +LOSA50TA6 PO; -NAPR1TAB9 PO; +PRED10TA PO; +VNTHFA/IN INH; -[UNRECOGNIZED DRUG - CODE] PO
[2017-04-26 12:41] LABS: BLOOD UREA NITROGEN 19 mg/dl (7-18); CALCIUM 9.5 mg/dl (8.5-10.1); CARBON DIOXIDE 27 mmol/L (21-32); GLUCOSE 104 mg/dl (70-99); POTASSIUM 4.4 mmol/L (3.5-5.1); SODIUM 135 mmol/L (136-145)
== END | disposition home or self-care (01) ==
LOC: C.LABPBG 09:38
PROVIDERS: ATTEND Physician Assistant
DX: I10 Essential (primary) hypertension (principal); E03.9 Hypothyroidism, unspecified

== ENCOUNTER → 2017-07-06 | Outpatient (CLI) | payer BC ==
--- NOTE | 2017-07-13 15:37 | MAMMOGRAPHY REPORT ---
BILATERAL DIGITAL SCREENING MAMMOGRAM TOMOSYNTHESIS WITH CAD: 07/06/2017 CLINICAL HISTORY: Routine screening. Patient has no complaints. TECHNIQUE: Breast tomosynthesis in addition to standard 2D mammography was performed. Current study was also evaluated with a Computer Aided Detection (CAD) system. COMPARISON: Comparison is made to exams dated: 04/20/2016 mammogram, 04/04/2016 mammogram, 03/03/2014 mammogram, and 03/22/2015 mammogram - [facility]. BREAST COMPOSITION: The tissue of both breasts is heterogeneously dense, which may obscure small mas ses. FINDINGS: No suspicious masses, calcifications, or areas of architectural distortion are noted in ei ther breast. There has been no significant interval change compared to prior exams. Circumscribed be nign-appearing 7 mm round mass within the right upper outer quadrant anteriorly is stable compared to the 2016 exam and was shown to represent a cyst on the prior outside 2017 ultrasound exam. Scattere d bilateral benign-appearing calcifications are not significantly changed. IMPRESSION: ACR BI-RADS CATEGORY 2: BENIGN There is no mammographic evidence of malignancy. A 1 year screening mammogram is recommended. The pa tient will receive written notification of the results. Approximately 10% of breast cancers are not detected with mammography. A negative mammographic report should not delay biopsy if a clinically suggestive mass is present. Sherry Alvarez M.D. ah/:07/13/2017 14:13:05 Digital Marketing Officer: Kelsey CHARLES)Asif)(BD), [facility] letter sent: Normal 1/2 BI-RADS Code: ACR BI-RADS Category 2: Benign
== END | disposition home or self-care (01) ==
LOC: C.MAMM 14:14
PROVIDERS: ATTEND Family Medicine
DX: Z12.31 Encounter for screening mammogram for malignant neoplasm of breast (principal)

== ENCOUNTER → 2017-11-01 | Outpatient (CLI) | payer BC, OTHER ==
[~2017-11-01] MED LIST changes: +CIPR-255 PO; +CLBCRM30 EXT; +GUAISYP4 PO; -HYDR5SYP11 PO; +HYZ/50125 PO; +LORA-554 PO; -LOSA50TA6 PO; +NAPR1TAB9 PO; -PRED10TA PO; -VNTHFA/IN INH
[2017-11-01 17:16] LABS: BLOOD UREA NITROGEN 20 mg/dl (7-18); CALCIUM 9.6 mg/dl (8.5-10.1); CARBON DIOXIDE 28 mmol/L (21-32); CREATININE 0.76 mg/dl (0.60-1.20); GLUCOSE 86 mg/dl (70-99); POTASSIUM 4.1 mmol/L (3.5-5.1); SODIUM 137 mmol/L (136-145)
[2017-11-01 17:22] LABS: FOLLICLE STIMULAT HORMONE 92.72 IU/L; LUTEINIZING HORMONE 42.18 IU/L
== END | disposition home or self-care (01) ==
LOC: C.LABPBG 13:32
PROVIDERS: ATTEND Family Medicine
DX: R45.4 Irritability and anger (principal); I10 Essential (primary) hypertension; E03.9 Hypothyroidism, unspecified

== ENCOUNTER 2021-02-20 10:51 | Observation (INO) ==
[2021-02-20] MEDS ORDERED: SODIUM CHLORIDE 0.9% 1000ML 1,000 ML IV ONE (11:34)
--- NOTE | 2021-02-20 11:40 | Emergency Department Note ---
History of Present Illness General Chief complaint: Shortness of Breath/Dyspnea Stated complaint: SOB,LIGHTHEADED,WEAK Time Seen by Provider: 02/20/21 11:20 Source: patient and family (Sister who is at the bedside) Mode of arrival: ambulatory Limitations: no limitations History of Present Illness Maximum Pain Intensity: 0 This patient is a 70-year-old female who comes in after being sick for over a month with sinusitis and bronchitis she tells me she has had 2 courses of steroids and 2 doses of antibiotics. The steroids gave her lower extremity edema she tells me and she just finished a course of Lasix she feels better in that regard. She also had some thrush suspected and she been on nystatin. She had episode today after she was making breakfast for her grandchild where she felt lightheaded and sweaty she had had some pressure across her chest and felt weak and shaky. Her heart rate was 180 when they checked it at home monitor. She had some chest pressure and shortness of breath she feels a lot better now. She is continues to have a nonproductive cough but she is had no fever. She did have Covid back in August and has not been vaccinated. She has some mild lower extremity edema which is getting better. No blood or melena in her stool besides some chronic intermittent blood from hemorrhoids. No urinary symptoms. No fall or trauma. Mild postnasal drip and headache at times no sore throat. Home Medications Medication Instructions Recorded Confirmed Type naproxen sodium 220 mg tablet 220 mg PO DAILY PRN 12/24/17 02/20/21 History (Aleve) cholecalciferol (vitamin D3) 50 2,000 units PO DAILY #30 tab 12/15/18 02/20/21 History mcg (2,000 unit) tablet albuterol sulfate 90 mcg/actuation See Rx Instructions INHALATION 02/03/21 02/20/21 Rx aerosol inhaler (Ventolin HFA) .COMPLEX PRN #18 g cetirizine 10 mg tablet (Zyrtec) 10 mg PO DAILY PRN 02/03/21 02/20/21 History doxycycline hyclate 100 mg tablet 100 mg PO BID 10 Days #20 tab 02/03/21 02/20/21 Rx levothyroxine 75 mcg tablet 75 mcg PO DAILY #90 tab 02/03/21 02/20/21 Rx prednisone 20 mg tablet See Rx Instructions .ROUTE 02/03/21 02/20/21 Rx .COMPLEX #11 tab furosemide 20 mg tablet (Lasix) 20 mg PO DAILY 10 Days #10 tab 02/11/21 02/20/21 Rx benzonatate 200 mg capsule 200 mg PO TID PRN #30 cap 02/14/21 02/20/21 Rx nystatin 100,000 unit/mL oral See Rx Instructions .ROUTE 02/17/21 02/20/21 Rx suspension .COMPLEX #250 ml Allergies Allergy/AdvReac Type Severity Reaction Status Date / Time adhesive Allergy Unknown SKIN Verified 02/03/21 14:59 IRRITATION Past Med/Surg History Medical History Allergic rhinitis Chest congestion Chronic constipation Diverticulosis Eczema H/O thyroid nodule History of COVID-19 Hypertension Hypothyroidism Osteoarthritis Prediabetes Venous insufficiency Vitamin D deficiency Surgical History History of appendectomy History of section History of colonoscopy History of tooth extraction WISDOM TEETH History of total abdominal hysterectomy and bilateral salpingo-oophorectomy S/P cataract extraction S/P thyroid biopsy ON NODULES--BENIGN Family History Father Lung disease Hypertension Alcohol abuse Esophageal cancer Mother Lung disease Myocardial infarction, Onset Age: 40 Colorectal cancer, Onset Age: 74 Hypertension Brother Alcohol abuse Heart disease Hypertension Other Lung cancer Social History Smoking Status: Never smoker Second Hand Exposure: Yes; Hx Alcohol Use: No Hx Substance Use: No Preferred Language: Belarusian Communication Ability: Effective Visual Impairment: No Limitations Hearing Ability: Normal Organ Builder Required: No Beliefs That Will Affect Care: None marital status: Current Living Situation: Spouse current occupational status: employed Feels Safe at Home: Yes Childhood Exposure to Second-Hand Smoke: Yes Diet Comment: eats whatever she wants caffeine: Yes during the past year weight has: remained stable Dental Care, Regularly: No Physical Activity Frequency: Daily Physical Activity Frequency Comment: work Seatbelt Use: always Sunscreen Use: No Assistive Devices: Glasses Review of Systems A total of 10 systems reviewed and were otherwise negative Physical Exam Vital Signs Vital Signs - 24 hr 02/20/21 11:07 02/20/21 11:13 02/20/21 12:17 Temperature 36.6 C Temperature Source Temporal Artery Scan Pulse Rate 129 H Pulse Rate [Right Finger] Pulse Rate from SpO2 Sensor Respiratory Rate 18 18 Respiratory Effort / Characteristics Non-Labored Non-Labored Respiratory Depth Normal Respiratory Pattern Blood Pressure 123/88 Blood Pressure [Right Arm] Blood Pressure Mean 99 Blood Pressure Mean [Right Arm] Pulse Oximetry 97 97 96 Oxygen Delivery Method Room Air Room Air Room Air Sepsis Recent Fever Within 48 Hours No Sepsis New/Unexplained Change in Mental Status No Sepsis Action Taken by Nursing No Action Required 02/20/21 12:48 02/20/21 12:49 02/20/21 12:51 Temperature Temperature Source Pulse Rate Pulse Rate [Right Finger] 91 H Pulse Rate from SpO2 Sensor Respiratory Rate 18 Respiratory Effort / Characteristics Non-Labored Non-Labored Respiratory Depth Normal Respiratory Pattern Regular Blood Pressure Blood Pressure [Right Arm] 128/84 Blood Pressure Mean Blood Pressure Mean [Right Arm] 98 Pulse Oximetry 96 Oxygen Delivery Method Room Air Room Air Sepsis Recent Fever Within 48 Hours Sepsis New/Unexplained Change in Mental Status Sepsis Action Taken by Nursing 02/20/21 12:55 02/20/21 13:00 02/20/21 13:10 Temperature Temperature Source Pulse Rate 88 88 87 Pulse Rate [Right Finger] Pulse Rate from SpO2 Sensor Respiratory Rate 16 20 15 Respiratory Effort / Characteristics Non-Labored Respiratory Depth Respiratory Pattern Blood Pressure Blood Pressure [Right Arm] Blood Pressure Mean Blood Pressure Mean [Right Arm] Pulse Oximetry 96 95 95 Oxygen Delivery Method Sepsis Recent Fever Within 48 Hours Sepsis New/Unexplained Change in Mental Status Sepsis Action Taken by Nursing 02/20/21 13:20 02/20/21 13:30 02/20/21 13:40 Temperature Temperature Source Pulse Rate 85 86 87 Pulse Rate [Right Finger] Pulse Rate from SpO2 Sensor Respiratory Rate 16 15 14 Respiratory Effort / Characteristics Non-Labored Respiratory Depth Respiratory Pattern Blood Pressure Blood Pressure [Right Arm] Blood Pressure Mean Blood Pressure Mean [Right Arm] Pulse Oximetry 96 Oxygen Delivery Method Sepsis Recent Fever Within 48 Hours Sepsis New/Unexplained Change in Mental Status Sepsis Action Taken by Nursing 02/20/21 13:50 02/20/21 14:00 02/20/21 14:10 Temperature Temperature Source Pulse Rate 81 85 Pulse Rate [Right Finger] Pulse Rate from SpO2 Sensor Respiratory Rate 20 18 15 Respiratory Effort / Characteristics Non-Labored Respiratory Depth Respiratory Pattern Blood Pressure 121/86 Blood Pressure [Right Arm] Blood Pressure Mean 97 Blood Pressure Mean [Right Arm] Pulse Oximetry 95 Oxygen Delivery Method Sepsis Recent Fever Within 48 Hours Sepsis New/Unexplained Change in Mental Status Sepsis Action Taken by Nursing 02/20/21 14:25 02/20/21 14:30 02/20/21 14:40 Temperature Temperature Source Pulse Rate 98 H 87 90 Pulse Rate [Right Finger] Pulse Rate from SpO2 Sensor Respiratory Rate 20 13 18 Respiratory Effort / Characteristics Non-Labored Respiratory Depth Respiratory Pattern Blood Pressure 147/87 H Blood Pressure [Right Arm] Blood Pressure Mean 107 Blood Pressure Mean [Right Arm] Pulse Oximetry 97 Oxygen Delivery Method Sepsis Recent Fever Within 48 Hours Sepsis New/Unexplained Change in Mental Status Sepsis Action Taken by Nursing 02/20/21 14:50 02/20/21 15:00 02/20/21 15:06 Temperature Temperature Source Pulse Rate 85 81 Pulse Rate [Right Finger] Pulse Rate from SpO2 Sensor 85 80 Respiratory Rate 12 15 Respiratory Effort / Characteristics Non-Labored Respiratory Depth Respiratory Pattern Blood Pressure 140/86 Blood Pressure [Right Arm] Blood Pressure Mean 104 Blood Pressure Mean [Right Arm] Pulse Oximetry 98 97 96 Oxygen Delivery Method Room Air Sepsis Recent Fever Within 48 Hours Sepsis New/Unexplained Change in Mental Status Sepsis Action Taken by Nursing 02/20/21 15:10 02/20/21 15:20 02/20/21 15:30 Temperature Temperature Source Pulse Rate 84 82 82 Pulse Rate [Right Finger] Pulse Rate from SpO2 Sensor 83 83 83 Respiratory Rate 16 21 17 Respiratory Effort / Characteristics Non-Labored Respiratory Depth Respiratory Pattern Blood Pressure 140/86 Blood Pressure [Right Arm] Blood Pressure Mean 104 Blood Pressure Mean [Right Arm] Pulse Oximetry 98 96 96 Oxygen Delivery Method Sepsis Recent Fever Within 48 Hours Sepsis New/Unexplained Change in Mental Status Sepsis Action Taken by Nursing 02/20/21 15:40 02/20/21 15:50 02/20/21 16:00 Temperature Temperature Source Pulse Rate 83 92 H 94 H Pulse Rate [Right Finger] Pulse Rate from SpO2 Sensor 86 90 88 Respiratory Rate 14 13 16 Respiratory Effort / Characteristics Non-Labored Respiratory Depth Respiratory Pattern Blood Pressure 146/87 H Blood Pressure [Right Arm] Blood Pressure Mean 106 Blood Pressure Mean [Right Arm] Pulse Oximetry 96 97 95 Oxygen Delivery Method Sepsis Recent Fever Within 48 Hours Sepsis New/Unexplained Change in Mental Status Sepsis Action Taken by Nursing 02/20/21 16:10 02/20/21 16:20 02/20/21 16:30 Temperature Temperature Source Pulse Rate 85 83 79 Pulse Rate [Right Finger] Pulse Rate from SpO2 Sensor 80 81 80 Respiratory Rate 16 16 15 Respiratory Effort / Characteristics Non-Labored Respiratory Depth Respiratory Pattern Blood Pressure 142/88 H Blood Pressure [Right Arm] Blood Pressure Mean 106 Blood Pressure Mean [Right Arm] Pulse Oximetry 97 96 95 Oxygen Delivery Method Sepsis Recent Fever Within 48 Hours Sepsis New/Unexplained Change in Mental Status Sepsis Action Taken by Nursing 02/20/21 16:40 02/20/21 16:50 02/20/21 17:00 Temperature Temperature Source Pulse Rate 80 83 Pulse Rate [Right Finger] Pulse Rate from SpO2 Sensor 81 90 83 Respiratory Rate 14 20 18 Respiratory Effort / Characteristics Non-Labored Respiratory Depth Respiratory Pattern Blood Pressure 146/86 H Blood Pressure [Right Arm] Blood Pressure Mean 106 Blood Pressure Mean [Right Arm] Pulse Oximetry 97 96 97 Oxygen Delivery Method Sepsis Recent Fever Within 48 Hours Sepsis New/Unexplained Change in Mental Status Sepsis Action Taken by Nursing 02/20/21 17:10 02/20/21 17:20 02/20/21 17:30 Temperature Temperature Source Pulse Rate 86 83 Pulse Rate [Right Finger] Pulse Rate from SpO2 Sensor 87 91 H 84 Respiratory Rate 16 27 H 20 Respiratory Effort / Characteristics Non-Labored Respiratory Depth Respiratory Pattern Blood Pressure Blood Pressure [Right Arm] Blood Pressure Mean Blood Pressure Mean [Right Arm] Pulse Oximetry 99 82 L 95 Oxygen Delivery Method Sepsis Recent Fever Within 48 Hours Sepsis New/Unexplained Change in Mental Status Sepsis Action Taken by Nursing 02/20/21 17:40 Temperature Temperature Source Pulse Rate 86 Pulse Rate [Right Finger] Pulse Rate from SpO2 Sensor 85 Respiratory Rate 13 Respiratory Effort / Characteristics Respiratory Depth Respiratory Pattern Blood Pressure Blood Pressure [Right Arm] Blood Pressure Mean Blood Pressure Mean [Right Arm] Pulse Oximetry 96 Oxygen Delivery Method Sepsis Recent Fever Within 48 Hours Sepsis New/Unexplained Change in Mental Status Sepsis Action Taken by Nursing General: Well developed well nourished not ill-appearing older female who appears in no acute distress, breathing comfortably on room air. Normal speech HEENT: Normal cephalic atraumatic. Pupils are equal round and reactive to light. Extraocular movements are intact. Oropharynx is pink with moist mucous membranes. No swelling of the mouth lips or tongue. No thrush seen Neck: Supple with a midline trachea. No meningeal signs or stiffness, no JVD or bruits. No Stridor. Chest: Clear to auscultation bilaterally. No wheezes or rhonchi. No increased work of breathing. Heart: Regular rate and rhythm she does sound mildly tachycardic but murmurs or gallops. Abdomen: Soft nontender, nondistended without rebound guarding or rigidity. Extremities: No cyanosis clubbing or edema. No calf tenderness or assymetry Spine/Back. Non tender to palpation. No CVA tenderness Skin: Good turgor without rashes. Neurologic exam: Cranial nerves two through 12 are intact. Motor and sensation are intact and symmetrical throughout. Course Administered Medications Discontinued Medications Sodium Chloride (Nss 1000ml) 1,000 mls @ 999 mls/hr IV .Q1H1M ONE Stop: 02/20/21 12:34 Last Infusion: 02/20/21 14:15 Dose: 0 mls/hr Documented by: [id number] Admin: 02/20/21 13:14 Dose: 999 mls/hr Documented by: [id number] Ioversol (Optiray 320 125ml) 91 ml IV ONCE ONE Stop: 02/20/21 14:23 Last Admin: 02/20/21 14:22 Dose: 91 ml Documented by: [id number] Medical Decision Making Differential Diagnosis Arrhythmia, acute coronary syndrome, PE, pneumonia, sinusitis, Covid, electrolyte or metabolic abnormality, sepsis, medication side effect, thyroid disease Medical Records Attestation: I reviewed the patient's medical records. Home Medications Current Medication List: was personally reviewed by me Laboratory Data Attestation: I reviewed the patient's lab results. Result diagrams: 02/20/21 13:08 02/20/21 13:08 Lab Results 02/20/21 02/20/21 02/20/21 Range/Units 12:10 12:10 12:10 WBC (4.8-10.8) K/uL RBC (4.2-5.4) M/uL Hgb (12.0-16.0) g/dL Hct (37-47) % MCV (80-100) fL MCH (25-34) pg MCHC (32-36) g/dL RDW Std Deviation (36.4-46.3) fL RDW Coeff of García (11.5-14.5) % Plt Count (130-400) K/uL MPV (7.4-10.4) fL Immature Gran % (Auto) % Neut % (Auto) % Lymph % (Auto) % [place] % (Auto) % Eos % (Auto) % Baso % (Auto) % Neut # (Auto) (1.4-6.5) K/uL Lymph # (Auto) (1.2-3.4) K/uL [place] # (Auto) (0.11-0.59) K/uL Eos # (Auto) (0-0.5) K/uL Baso # (Auto) (0-0.2) K/uL Immature Gran # (Auto) (0.00-0.02) K/uL PT (9.0-12.0) Seconds INR (0.9-1.1) APTT (21.0-31.0) Seconds PTT Ratio D-Dimer (0-500) ug/L FEU Sodium (136-145) mmol/L Potassium (3.5-5.1) mmol/L Chloride (98-107) mmol/L Carbon Dioxide (21-32) mmol/L Anion Gap (3-11) BUN (7-18) mg/dl Creatinine (0.6-1.2) mg/dl Est Cr Clr Drug Dosing ml/min Est GFR ( Amer) ml/min Est GFR (Non-Af Amer) ml/min BUN/Creatinine Ratio (10-20) Glucose (70-99) mg/dl Lactate (0.4-2.0) mmol/L Calcium (8.5-10.1) mg/dl Magnesium (1.8-2.4) mg/dl Total Bilirubin (0.2-1) mg/dl AST (15-37) U/L ALT (12-78) U/L Alkaline Phosphatase (45-117) U/L Troponin I (0-0.045) ng/ml Total Protein (6.4-8.2) gm/dl Albumin (3.4-5.0) gm/dl Globulin (2.5-4.0) gm/dl Albumin/Globulin Ratio (0.9-2) Procalcitonin (0-0.5) ng/ml Urine Color Yellow Urine Appearance Clear (Clear) Urine pH 6.0 (4.5-7.5) Ur Specific Jarratt 1.014 (1.000-1.030) Urine Protein Negative (Negative) Urine Glucose (UA) Negative (Negative) Urine Ketones Negative (Negative) Urine Blood Negative (Negative) Urine Nitrite Negative (Negative) Urine Bilirubin Negative (Negative) Urine Urobilinogen Negative (Negative) Ur Leukocyte Esterase Trace H (Negative) Urine WBC (Auto) 1-5 (0-5) /hpf Urine RBC (Auto) 0-4 (0-4) /hpf U Hyaline Cast (Auto) 5-10 H (0-5) /lpf U Epithel Cells (Auto) 10-20 H (0-5) /lpf Urine Bacteria (Auto) Negative (Negative) COVID-19 Eval Order Covid19 at [facility] SARS-CoV-2 (PCR) NEGATIVE (Negative) 02/20/21 02/20/21 02/20/21 Range/Units 13:08 13:08 13:08 WBC (4.8-10.8) K/uL RBC (4.2-5.4) M/uL Hgb (12.0-16.0) g/dL Hct (37-47) % MCV (80-100) fL MCH (25-34) pg MCHC (32-36) g/dL RDW Std Deviation (36.4-46.3) fL RDW Coeff of García (11.5-14.5) % Plt Count (130-400) K/uL MPV (7.4-10.4) fL Immature Gran % (Auto) % Neut % (Auto) % Lymph % (Auto) % [place] % (Auto) % Eos % (Auto) % Baso % (Auto) % Neut # (Auto) (1.4-6.5) K/uL Lymph # (Auto) (1.2-3.4) K/uL [place] # (Auto) (0.11-0.59) K/uL Eos # (Auto) (0-0.5) K/uL Baso # (Auto) (0-0.2) K/uL Immature Gran # (Auto) (0.00-0.02) K/uL PT 9.3 (9.0-12.0) Seconds INR 0.9 (0.9-1.1) APTT 23.3 (21.0-31.0) Seconds PTT Ratio 0.9 D-Dimer 710 H* (0-500) ug/L FEU Sodium 139 (136-145) mmol/L Potassium 3.4 L (3.5-5.1) mmol/L Chloride 103 (98-107) mmol/L Carbon Dioxide 30 (21-32) mmol/L Anion Gap 6.0 (3-11) BUN 14 (7-18) mg/dl Creatinine 0.90 (0.6-1.2) mg/dl Est Cr Clr Drug Dosing 59.1 ml/min Est GFR ( Amer) 76.1 ml/min Est GFR (Non-Af Amer) 65.7 ml/min BUN/Creatinine Ratio 15.3 (10-20) Glucose 63 L (70-99) mg/dl Lactate (0.4-2.0) mmol/L Calcium 9.7 (8.5-10.1) mg/dl Magnesium 2.6 H (1.8-2.4) mg/dl Total Bilirubin 0.5 (0.2-1) mg/dl AST 20 (15-37) U/L ALT 33 (12-78) U/L Alkaline Phosphatase 109 (45-117) U/L Troponin I < 0.015 (0-0.045) ng/ml Total Protein 7.6 (6.4-8.2) gm/dl Albumin 3.5 (3.4-5.0) gm/dl Globulin 4.1 H (2.5-4.0) gm/dl Albumin/Globulin Ratio 0.9 (0.9-2) Procalcitonin < 0.05 (0-0.5) ng/ml Urine Color Urine Appearance (Clear) Urine pH (4.5-7.5) Ur Specific J[place]att (1.000-1.030) Urine Protein (Negative) Urine Glucose (UA) (Negative) Urine Ketones (Negative) Urine Blood (Negative) Urine Nitrite (Negative) Urine Bilirubin (Negative) Urine Urobilinogen (Negative) Ur Leukocyte Esterase (Negative) Urine WBC (Auto) (0-5) /hpf Urine RBC (Auto) (0-4) /hpf U Hyaline Cast (Auto) (0-5) /lpf U Epithel Cells (Auto) (0-5) /lpf Urine Bacteria (Auto) (Negative) COVID-19 Eval Order SARS-CoV-2 (PCR) (Negative) 02/20/21 02/20/21 Range/Units 13:08 13:08 WBC 10.81 H (4.8-10.8) K/uL RBC 3.70 L (4.2-5.4) M/uL Hgb 13.4 (12.0-16.0) g/dL Hct 40.6 (37-47) % MCV 109.7 H (80-100) fL MCH 36.2 H (25-34) pg MCHC 33.0 (32-36) g/dL RDW Std Deviation 67.0 H (36.4-46.3) fL RDW Coeff of García 16.4 H (11.5-14.5) % Plt Count 328 (130-400) K/uL MPV 9.7 (7.4-10.4) fL Immature Gran % (Auto) 0.4 % Neut % (Auto) 70.4 % Lymph % (Auto) 17.9 % [place] % (Auto) 8.2 % Eos % (Auto) 2.8 % Baso % (Auto) 0.3 % Neut # (Auto) 7.62 H (1.4-6.5) K/uL Lymph # (Auto) 1.93 (1.2-3.4) K/uL [place] # (Auto) 0.89 H (0.11-0.59) K/uL Eos # (Auto) 0.30 (0-0.5) K/uL Baso # (Auto) 0.03 (0-0.2) K/uL Immature Gran # (Auto) 0.04 H (0.00-0.02) K/uL PT (9.0-12.0) Seconds INR (0.9-1.1) APTT (21.0-31.0) Seconds PTT Ratio D-Dimer (0-500) ug/L FEU Sodium (136-145) mmol/L Potassium (3.5-5.1) mmol/L Chloride (98-107) mmol/L Carbon Dioxide (21-32) mmol/L Anion Gap (3-11) BUN (7-18) mg/dl Creatinine (0.6-1.2) mg/dl Est Cr Clr Drug Dosing ml/min Est GFR ( Amer) ml/min Est GFR (Non-Af Amer) ml/min BUN/Creatinine Ratio (10-20) Glucose (70-99) mg/dl Lactate 1.0 (0.4-2.0) mmol/L Calcium (8.5-10.1) mg/dl Magnesium (1.8-2.4) mg/dl Total Bilirubin (0.2-1) mg/dl AST (15-37) U/L ALT (12-78) U/L Alkaline Phosphatase (45-117) U/L Troponin I (0-0.045) ng/ml Total Protein (6.4-8.2) gm/dl Albumin (3.4-5.0) gm/dl Globulin (2.5-4.0) gm/dl Albumin/Globulin Ratio (0.9-2) Procalcitonin (0-0.5) ng/ml Urine Color Urine Appearance (Clear) Urine pH (4.5-7.5) Ur Specific J[place]att (1.000-1.030) Urine Protein (Negative) Urine Glucose (UA) (Negative) Urine Ketones (Negative) Urine Blood (Negative) Urine Nitrite (Negative) Urine Bilirubin (Negative) Urine Urobilinogen (Negative) Ur Leukocyte Esterase (Negative) Urine WBC (Auto) (0-5) /hpf Urine RBC (Auto) (0-4) /hpf U Hyaline Cast (Auto) (0-5) /lpf U Epithel Cells (Auto) (0-5) /lpf Urine Bacteria (Auto) (Negative) COVID-19 Eval Order SARS-CoV-2 (PCR) (Negative) Imaging Data Attestation: I personally reviewed and interpreted this imaging study as follows: My Impression: Chest x-rayno acute infiltrate, failure, pneumothorax seen Radiologist's Impression: Chest X-Ray 02/20/21 11:35 XR chest 1V portable CLINICAL HISTORY: SEPSIS TECHNIQUE: Single frontal radiograph of the chest was obtained. Comparison: Comparison is made to chest 2 views 02/11/2021 FINDINGS: No lines and tubes are seen. The cardiomediastinal silhouette is normal. The lungs are clear. No evidence of pleural effusion or pneumothorax. IMPRESSION: No acute chest disease. ACT 112: Negative or not required by law. Electronically signed by: Cosme Rosado M.D. 02/20/2021 12:10 PM Chest CTA 02/20/21 13:40 CT angio chest PE protocol CLINICAL HISTORY: PE TECHNIQUE: Multidetector row helical CT of the chest was performed. Coronal and sagittal reformations were obtained. Automated dose lowering techniques and/or a djustment according to patient size were utilized for this exam. Comparison: Comparison is made to CT chest 09/24/2020 FINDINGS: Lungs and pleura: Multifocal groundglass opacities are seen, possibly superimposed on mosaic attenuation. Bronchial wall thickening is seen. Heart and pericardium: Heart size is normal. No pericardial effusion. Vessels: No evidence of pulmonary embolism. Mediastinum and hever: Unremarkable. Chest wall and lower neck: Unremarkable. Abdomen: Unremarkable. Bones: Degenerative changes in the thoracic spine. IMPRESSION: 1. No evidence of pulmonary embolism. 2. Multifocal groundglass opacities, clinical correlation is recommended for infectious/inflammatory process. ACT 112: Negative or not required by law. Electronically signed by: Cosme Rosado M.D. 02/20/2021 2:35 PM ECG Data Attestation: I personally reviewed and interpreted this ECG as follows: Indication: + diaphoresis and + SOB/dyspnea Rate (beats per minute): 110 Rhythm: + normal sinus ECG Intervals/blocks: + Normal QRS, + Normal QT and + Normal NE ECG Reform: + Normal ECG ST segments: + Nonspecific ST abnormalities ECG Findings: no PACs or no PVCs Comparison ECG Date: from (09/01/20) Change: no significant change Additional Comments: EKG #2normal sinus rhythm rate 84. No ischemic changes no significant change. EKG #1 MDM Narrative This patient is a 70-year-old female has been sick for about a month but had an episode today where she felt like her heart was racing and apparently was 180 at home she did not feel well with this was lightheaded and diaphoretic and had some chest pressure she is feeling better now. She felt like this here in the ER wants to but I believe was before placed on the monitor we did not capture anything on the monitor thus far. IV access was established and she was hydrated with a 1 L IV normal saline bolus, she was placed on a media monitor EKG and chest x-ray was obtained she was reassessed frequently. Her EKGs x2 do not show any definite ischemic changes no change between the 2 her troponin is negative. White count is mildly elevated. She has no significant electrolyte o r metabolic abnormalities. She does not suggest sepsis. She does not appear to be in congestive heart failure and her chest x-ray does not show any definite pneumonia pneumothorax or CHF. Her D-dimer was elevated in light of this. I did do a CTA of her chest there is no evidence of PE there is some nonspecific groundglass findings which may be from her previous Covid infection. Her Covid test today was negative. Given her episode of rapid heart rate, I do think she needs a cardiac evaluation. I did consult Dr. Ortiz who will see her in the ER for admission/observation Continuous cardiac monitoring: Orders placed in EMR for continuous cardiac monitoring. Upon my interpretation the patient was noted to be in a sinus rhythm with a rate of 80. Impression & Plan Tachycardia, Dizziness, Lab test negative for COVID-19 virus, Diaphoresis Discharge Plan Visit Data Chief Complaint: Shortness of Breath/Dyspnea Stated Complaint: SOB,LIGHTHEADED,WEAK ED Provider: Miguel Angel Mccoy Discharge Problem: Tachycardia, Dizziness, Lab test negative for COVID-19 virus, Diaphoresis Forms Stand Alone Forms: My [facility] Prescriptions Prescriptions: No Action furosemide [Lasix] 20 mg tablet 20 mg PO DAILY 10 Days Qty: 10 RF: 0 benzonatate 200 mg capsule 200 mg PO TID PRN (Reason: cough) Qty: 30 RF: 0 nystatin 100,000 unit/mL suspension See Rx Instructions .Route .COMPLEX Qty: 250 RF: 0 cholecalciferol (vitamin D3) 2,000 unit tablet 2,000 units PO DAILY Qty: 30 RF: 0 cetirizine [Zyrtec] 10 mg tablet 10 mg PO DAILY PRN (Reason: Allergy Symptoms) RF: 0 prednisone 20 mg tablet See Rx Instructions .Route .COMPLEX Qty: 11 RF: 0 albuterol sulfate [Ventolin HFA] 90 mcg/actuation HFA aerosol inhaler See Rx Instructions inhalation .COMPLEX PRN (Reason: shortness of breath or wheezing) Qty: 18 RF: 0 doxycycline hyclate 100 mg tablet 100 mg PO BID 10 Days Qty: 20 RF: 0 levothyroxine 75 mcg tablet 75 mcg PO DAILY Qty: 90 RF: 1 naproxen sodium [Aleve] 220 mg Tablet 220 mg PO DAILY PRN (Reason: Pain) RF: 0 Referrals Referrals: Candy Barajas DO [Primary Care Provider] -
--- NOTE | 2021-02-20 12:11 | XRay Report ---
XR chest 1V portable CLINICAL HISTORY: SEPSIS TECHNIQUE: Single frontal radiograph of the chest was obtained. Comparison: Comparison is made to chest 2 views 02/11/2021 FINDINGS: No lines and tubes are seen. The cardiomediastinal silhouette is normal. The lungs are clear. No evid ence of pleural effusion or pneumothorax. IMPRESSION: No acute chest disease. ACT 112: Negative or not required by law. Electronically signed by: Cosme Rosado M.D. 02/20/2021 12:10 PM
[2021-02-20 12:36] LABS: Appearance Urine Clear (Clear); Bacteria Urine Automated Negative (Negative); Bilirubin Urine Negative (Negative); Blood Urine Negative (Negative); Color Urine Yellow; Glucose Urine UA Negative (Negative); Ketones Urine Negative (Negative); Leukocyte Esterase Urine Trace (Negative); Nitrite Urine Negative (Negative); Protein Urine Negative (Negative); RBC Urine Automated 0-4 /hpf (0-4); Specific Gravity Urine 1.014 (1.000-1.030); Urobilinogen Urine Negative (Negative)
[2021-02-20 13:17] LABS: Basophils # (auto) 0.03 K/uL (0-0.2); Basophils % (auto) 0.3 %; Eosinophils % (auto) 2.8 %; Hematocrit (blood only) 40.6 % (37-47); Hemoglobin 13.4 g/dL (12.0-16.0); Immature Granulocytes # (auto) 0.04 K/uL (0.00-0.02); Immature Granulocytes % (auto) 0.4 %; Lymphocytes # (auto) 1.93 K/uL (1.2-3.4); Lymphocytes % (auto) 17.9 %; Mean Corpuscular Hemoglobin 36.2 pg (25-34); Mean Corpuscular Volume 109.7 fL (80-100); Mean Platelet Volume 9.7 fL (7.4-10.4); Monocytes # (auto) 0.89 K/uL (0.11-0.59); Monocytes % (auto) 8.2 %; Neutrophils # (auto) 7.62 K/uL (1.4-6.5); Neutrophils % (auto) 70.4 %; Platelet Count 328 K/uL (130-400); RDW Coefficient of Variation 16.4 % (11.5-14.5); White Blood Count 10.81 K/uL (4.8-10.8)
[2021-02-20 13:29] LABS: INR 0.9 (0.9-1.1); Partial Thromboplastin Ratio 0.9; Partial Thromboplastin Time 23.3 Seconds (21.0-31.0); Prothrombin Time 9.3 Seconds (9.0-12.0)
[2021-02-20 13:35] LABS: Alanine Aminotransferase 33 U/L (12-78); Albumin Level 3.5 gm/dl (3.4-5.0); Aspartate Aminotransferase 20 U/L (15-37); BUN Creatinine Ratio 15.3 (10-20); Blood Urea Nitrogen 14 mg/dl (7-18); Calcium 9.7 mg/dl (8.5-10.1); Carbon Dioxide 30 mmol/L (21-32); Chloride 103 mmol/L (98-107); Creatinine Clr Calc Pharmacy 59.1 ml/min; Est GFR (African American) 76.1 ml/min; Est GFR (Non-African American) 65.7 ml/min; Glucose 63 mg/dl (70-99); Magnesium 2.6 mg/dl (1.8-2.4); Potassium 3.4 mmol/L (3.5-5.1); Sodium 139 mmol/L (136-145)
[2021-02-20 13:37] LABS: D Dimer 710 ug/L FEU (0-500)
[2021-02-20 13:40] LABS: Albumin Globulin Ratio 0.9 (0.9-2); Alkaline Phosphatase 109 U/L (45-117); Bilirubin,Total 0.5 mg/dl (0.2-1); Globulin 4.1 gm/dl (2.5-4.0); Total Protein 7.6 gm/dl (6.4-8.2); Troponin I < 0.015 ng/ml (0-0.045)
[2021-02-20] MEDS ORDERED: OPTIRAY 320 125ml IV ONE (14:22)
--- NOTE | 2021-02-20 14:37 | CT Scan Report ---
CT angio chest PE protocol CLINICAL HISTORY: PE TECHNIQUE: Multidetector row helical CT of the chest was performed. Coronal and sagittal reformations were obtained. Automated dose lowering techniques and/or adjustment according to patient size were u tilized for this exam. Comparison: Comparison is made to CT chest 09/24/2020 FINDINGS: Lungs and pleura: Multifocal groundglass opacities are seen, possibly superimposed on mosaic attenuat ion. Bronchial wall thickening is seen. Heart and pericardium: Heart size is normal. No pericardial effusion. Vessels: No evidence of pulmonary embolism. Mediastinum and hever: Unremarkable. Chest wall and lower neck: Unremarkable. Abdomen: Unremarkable. Bones: Degenerative changes in the thoracic spine. IMPRESSION: 1. No evidence of pulmonary embolism. 2. Multifocal groundglass opacities, clinical correlation is recommended for infectious/inflammatory process. ACT 112: Negative or not required by law. Electronically signed by: Cosme Rosado M.D. 02/20/2021 2:35 PM
--- NOTE | 2021-02-20 15:23 | History & Physical Report ---
Date of Service February 20, 2021 Assessment & Plan (1) Dizziness: Plan: Dizzyness and?Tachyarrythmia - +Soft tissue edema in the evenings Chest pain/pressure with episode, now improved On home pulse ox had heart rate of over 180 with episode? A. fib versus SVT Admit for cardiac eval and telemetry Admit to med telemetry Troponin trended TTE pending If no observed tachyarrhythmia, consider outpatient Holter monitor - Sinusitis:No current symptoms, patient with some residual, phantom smoke smell "Defer additional doxy/prednisone treatment at this time - History of thrush:No thrush on exam. Defer additional nystatin at this time, clinical assess daily Goal K4.0, mag 2.0 Patient recently Covid positive, negative today with improvement in symptoms. D-dimer residual positive, CTANo evidence of pulmonary embolism. 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 Making pancakes this morning, felt flushed, lightheaded, diaphoretic with chest pressure. Recent sinusitis and bronchitis did nto improve with steroids or antibiotics.No signs infection. CTA negative. GGO opacities on imaging, had COVId several months back. Afebrile here. EKG x2 no ischemic changes, trop negative. lightheaded, dizzy, sweaty with chest aching and pressure. No prior history. [place] weak during the episode. Lasted for less than an hour but more than a few minutes. All sx improved, no sx at time of bedside assessment. Heart rate 184 during episode (daughter is an MANAGER OF CLINICAL and had a pulse ox).No history of afib or heart problems. No hx of tachyarrythmia. Denies nausea, vomiting, diarrhea, constipation, syncope, vertigo. No recent medication changes. Family history of heart disease as noted below. Endorses recent sinus congestion treated with doxycycline/steroids which is improving, otherwise no recent illnesses, no fever/chills/sweats preceding episode. FHX: Mother with [place] in 40s and 70s. Father in 50s of throat cancer. Medical History: Reviewed Medications: Reviewed. Took her medicine today. Surgical History: Reviewed Allergies: Reviewed Social History: No tobacco, no alcohol, no recreational drug. Code Status: Surrogate would be daughter. Full Code. Allergies Allergy/AdvReac Type Severity Reaction Status Date / Time adhesive Allergy Unknown SKIN Verified 02/03/21 14:59 IRRITATION Home Medications Medication Instructions Recorded Confirmed Type naproxen sodium 220 mg tablet 220 mg PO DAILY PRN 12/24/17 02/20/21 History (Aleve) cholecalciferol (vitamin D3) 50 2,000 units PO DAILY #30 tab 12/15/18 02/20/21 History mcg (2,000 unit) tablet albuterol sulfate 90 mcg/actuation See Rx Instructions INHALATION 02/03/21 02/20/21 Rx aerosol inhaler (Ventolin HFA) .COMPLEX PRN #18 g cetirizine 10 mg tablet (Zyrtec) 10 mg PO DAILY PRN 02/03/21 02/20/21 History doxycycline hyclate 100 mg tablet 100 mg PO BID 10 Days #20 tab 02/03/21 02/20/21 Rx levothyroxine 75 mcg tablet 75 mcg PO DAILY #90 tab 02/03/21 02/20/21 Rx prednisone 20 mg tablet See Rx Instructions .ROUTE 02/03/21 02/20/21 Rx .COMPLEX #11 tab furosemide 20 mg tablet (Lasix) 20 mg PO DAILY 10 Days #10 tab 02/11/21 02/20/21 Rx benzonatate 200 mg capsule 200 mg PO TID PRN #30 cap 02/14/21 02/20/21 Rx nystatin 100,000 unit/mL oral See Rx Instructions .ROUTE 02/17/21 02/20/21 Rx suspension .COMPLEX #250 ml Past Med/Surg History Medical History Allergic rhinitis Chest congestion Chronic constipation Diverticulosis Eczema H/O thyroid nodule History of COVID-19 Hypertension Hypothyroidism Osteoarthritis Prediabetes Venous insufficiency Vitamin D deficiency Surgical History History of appendectomy History of section History of colonoscopy History of tooth extraction WISDOM TEETH History of total abdominal hysterectomy and bilateral salpingo-oophorectomy S/P cataract extraction S/P thyroid biopsy ON NODULES--BENIGN Family History Father Lung disease Hypertension Alcohol abuse Esophageal cancer Mother Lung disease Myocardial infarction, Onset Age: 40 Colorectal cancer, Onset Age: 74 Hypertension Brother Alcohol abuse Heart disease Hypertension Other Lung cancer Social History Smoking Status: Never smoker Second Hand Exposure: Yes; Hx Alcohol Use: No Hx Substance Use: No Preferred Language: Turkmen Communication Ability: Effective Visual Impairment: No Limitations Hearing Ability: Normal 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 Beliefs That Will Affect Care: None marital status: Current Living Situation: Spouse current occupational status: employed Feels Safe at Home: Yes Childhood Exposure to Second-Hand Smoke: Yes Diet Comment: eats whatever she wants caffeine: Yes during the past year weight has: remained stable Dental Care, Regularly: No Physical Activity Frequency: Daily Physical Activity Frequency Comment: work Seatbelt Use: always Sunscreen Use: No Assistive Devices: Glasses Review of Systems Review of Systems: At time of exam 10 point review of systems negative except as noted in HPI Physical Exam Physical Exam: General: A&Ox3. NAD. Cooperative. HEENT: Atraumatic, normocephalic. Visual acuity and hearing grossly intact. Pulm: CTAB A&P. -wheezes, -rales, -rhonchi. Symmetrical chest rise. No increase work of breathing. No respiratory distress. Cardiac: RRR, -mrg. Radial pulses intact and symmetrical. Abdominal: Nontender, nondistended, soft. BS present. Extremities: Warm, dry. 1+ pitting edema of the legs bilaterally. Results & Data Results & Data ([facility]) Vital Signs (Past 12 Hours) Vital Signs Temp Pulse Pulse Resp BP BP Pulse Ox 02/20/21 15:06 96 02/20/21 15:00 81 15 140/86 97 02/20/21 14:50 85 12 98 02/20/21 14:40 90 18 147/87 H 97 02/20/21 14:30 87 13 02/20/21 14:25 98 H 20 02/20/21 14:10 85 15 02/20/21 14:00 81 18 121/86 95 02/20/21 13:50 20 02/20/21 13:40 87 14 02/20/21 13:30 86 15 02/20/21 13:20 85 16 96 02/20/21 13:10 87 15 95 02/20/21 13:00 88 20 95 02/20/21 12:55 88 16 96 02/20/21 12:51 91 H 18 128/84 96 02/20/21 12:17 18 96 02/20/21 11:13 97 02/20/21 11:07 36.6 C 129 H 18 123/88 97 PG Care Time/CCT Total # of Minutes Spent Total Time Spent with Patient: Total time spent is greater than 50% in coordination of care (as documented) at patient's floor/unit and/or counseling patient: Coding Level of Care Code INT OBSERVATION CARE 50M LVL 2 Diagnoses Dizziness R42 Hypothyroidism E03.9 Hypertension I10 Prediabetes R73.03
[2021-02-20] MEDS ORDERED: ONDANSETRON INJ 2 MG/ML 2 ML VIAL IV PRN (20:01)
[2021-02-20] MEDS ORDERED: POLYETHYLENE (MIRALAX) 17 GM PACK PO PRN (20:01)
[2021-02-20] MEDS ORDERED: ACETAMINOPHEN 325 MG TAB PO PRN (20:01)
[2021-02-20] MEDS ORDERED: MELATONIN 3 MG TAB PO PRN (20:19)
[2021-02-20] MEDS ORDERED: ENOXAPARIN INJ 40 MG/0.4 ML SYR SQ SCH (21:00)
[2021-02-20] MEDS ORDERED: BENZONATATE 100 MG CAPSULE PO ONE (21:45)
[2021-02-21 05:42] LABS: Basophils # (auto) 0.01 K/uL (0-0.2); Basophils % (auto) 0.1 %; Eosinophils # (auto) 0.33 K/uL (0-0.5); Eosinophils % (auto) 3.8 %; Hematocrit (blood only) 37.4 % (37-47); Hemoglobin 12.3 g/dL (12.0-16.0); Immature Granulocytes # (auto) 0.03 K/uL (0.00-0.02); Immature Granulocytes % (auto) 0.3 %; Lymphocytes # (auto) 1.97 K/uL (1.2-3.4); Lymphocytes % (auto) 22.5 %; Mean Corpuscular Hgb Conc 32.9 g/dL (32-36); Mean Corpuscular Volume 109.4 fL (80-100); Mean Platelet Volume 9.5 fL (7.4-10.4); Monocytes # (auto) 0.65 K/uL (0.11-0.59); Monocytes % (auto) 7.4 %; Neutrophils # (auto) 5.78 K/uL (1.4-6.5); Neutrophils % (auto) 65.9 %; Platelet Count 335 K/uL (130-400); RDW Coefficient of Variation 16.5 % (11.5-14.5); RDW Standard Deviation 66.6 fL (36.4-46.3); Red Blood Count 3.42 M/uL (4.2-5.4); White Blood Count 8.77 K/uL (4.8-10.8)
--- NOTE | 2021-02-21 05:45 | Electrocardiogram Report ---
Test Reason : Blood Pressure : / mmHG Vent. Rate : 110 BPM Atrial Rate : 110 BPM P-R Int : 178 ms QRS Dur : 078 ms QT Int : 346 ms P-R-T Axes : 054 -07 042 degrees QTc Int : 468 ms Sinus tachycardia Inferior infarct , age undetermined Possible Anterior infarct , age undetermined Abnormal ECG When compared with ECG of 01-SEP-2020 19:49, Inferior infarct is now Present Confirmed by Dragan Ivan ([id number]) on 02/21/2021 5:45:05 AM Referred By: REFERRED SELF Confirmed By:Dragan Ivan
--- NOTE | 2021-02-21 05:50 | Electrocardiogram Report ---
Test Reason : Blood Pressure : / mmHG Vent. Rate : 084 BPM Atrial Rate : 084 BPM P-R Int : 156 ms QRS Dur : 072 ms QT Int : 378 ms P-R-T Axes : 000 -01 019 degrees QTc Int : 446 ms Normal sinus rhythm Poor R wave progression, consider anterior RI vs. lead placement vs. LVH Abnormal ECG When compared with ECG of 20-FEB-2021 11:41, Questionable change in initial forces of Inferior leads Confirmed by Dragan Ivan ([id number]) on 02/21/2021 5:50:13 AM Referred By: REFERRED SELF Confirmed By:Dragan Ivan
[2021-02-21 06:10] LABS: BUN Creatinine Ratio 19.3 (10-20); Blood Urea Nitrogen 15 mg/dl (7-18); Calcium 9.5 mg/dl (8.5-10.1); Carbon Dioxide 27 mmol/L (21-32); Chloride 106 mmol/L (98-107); Creatinine Clr Calc Pharmacy 67.3 ml/min; Est GFR (African American) 89.1 ml/min; Est GFR (Non-African American) 76.9 ml/min; Glucose 91 mg/dl (70-99); Potassium 3.9 mmol/L (3.5-5.1); Sodium 138 mmol/L (136-145)
[2021-02-21 06:15] LABS: Troponin I < 0.015 ng/ml (0-0.045)
[2021-02-21] MEDS ORDERED: LEVOTHYROXINE SODIUM 75 MCG TABLET PO SCH (06:30)
[2021-02-21] MEDS ORDERED: FUROSEMIDE 20 MG TAB PO SCH (09:00)
--- NOTE | 2021-02-21 13:25 | XCELERA ---
[id number] \\[id number]
--- NOTE | 2021-02-25 10:33 | Discharge Summary ---
Date of Service February 21, 2021 Admission HPI Per Admitting Provider ER ER: Sick x1 month seen intermittently by telehealth. Making pancakes this morning, felt flushed, lightheaded, diaphoretic with chest pressure. Recent sinusitis and bronchitis did nto improve with steroids or antibiotics.No signs infection. CTA negative. GGO opacities on imaging, had COVId several months back. Afebrile here. EKG x2 no ischemic changes, trop negative. lightheaded, dizzy, sweaty with chest aching and pressure. No prior history. [place] weak during the episode. Lasted for less than an hour but more than a few minutes. All sx improved, no sx at time of bedside assessment. Heart rate 184 during episode (daughter is an SUPPLY CHAIN DIRECTOR and had a pulse ox).No history of afib or heart problems. No hx of tachyarrythmia. Denies nausea, vomiting, diarrhea, constipation, syncope, vertigo. No recent medication changes. Family history of heart disease as noted below. Endorses recent sinus congestion treated with doxycycline/steroids which is improving, otherwise no recent illnesses, no fever/chills/sweats preceding episode. FHX: Mother with [place] in 40s and 70s. Father in 50s of throat cancer. Medical History: Reviewed Medications: Reviewed. Took her medicine today. Surgical History: Reviewed Allergies: Reviewed Social History: No tobacco, no alcohol, no recreational drug. Code Status: Surrogate would be daughter. Full Code. Principal Diagnosis dizziness Discharge Exam General: A&Ox3. NAD. Cooperative. HEENT: Atraumatic, normocephalic. Visual acuity and hearing grossly intact. Pulm: CTAB A&P. -wheezes, -rales, -rhonchi. Symmetrical chest rise. No increase work of breathing. No respiratory distress. Cardiac: RRR, -mrg. Radial pulses intact and symmetrical. Abdominal: Nontender, nondistended, soft. BS present. Extremities: Warm, dry. 1+ pitting edema of the legs bilaterally. Discharge Data Allergies Allergy/AdvReac Type Severity Reaction Status Date / Time adhesive Allergy Unknown SKIN Verified 02/03/21 14:59 IRRITATION Consultations 02/20/21 14:42 ED Decision to Admit Stat Ordered Studies 02/20/21 13:40 CT angio chest PE protocol Stat Hospital Course (1) Dizziness: Dizzyness and?Tachyarrythmia - +Soft tissue edema in the evenings Chest pain/pressure with episode, now improved On home pulse ox had heart rate of over 180 with episode? A. fib versus SVT Admit for cardiac eval and telemetry Admit to med telemetry Troponin trended TTE pending If no observed tachyarrhythmia, consider outpatient Holter monitor - Sinusitis:No current symptoms, patient with some residual, phantom smoke smell "Defer additional doxy/prednisone treatment at this time - History of thrush:No thrush on exam. Defer additional nystatin at this time, clinical assess daily Goal K4.0, mag 2.0 Patient recently Covid positive, negative today with improvement in symptoms. D-dimer residual positive, CTANo evidence of pulmonary embolism. Multifocal groundglass opacities, clinical correlation is recommended for infectious/inflammatory process., Appears consistent with improving post Covid changes On day of discharge: Echo was negative. Trops were negative. Tele monitor was negative. will discharge patient, recommend close followup with PCP. 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, trend daily (4) Prediabetes: Glucose not elevated on admission BMP daily, add SSI if greater than 140 DVT prophylaxis: Lovenox Diet: Regular, convert to consistent carb if elevated CODE STATUS: Full code Disposition: Observation Total Time Total Time Spent Total Time Spent (In Minutes): 32 Discharge Plan Discharge Items Patient Disposition: Home - Self-Care Reason For Visit: CHEST PAIN EVAL, HOME TACHYARRYTHMIA 184BPM Discharge Diagnosis: chest pain Activity: Resume your previous activity Non-emergency contact: Primary Care Provider Call non-emergency contact if: you have any medication questions Follow-up/Referrals: Candy Barajas DO [Primary Care Provider] - (Please call your primary care physician to schedule a hospital follow up appt) Diet: Regular Addtl Attending Provider Instructions: Your heart eval was negative: this including a normal echocardiogram (Ultrasound of the heart) Normal cardiac blood work (normal troponin) No changes on your heart monitor. Will recommend close followup with PCP within next week or 2. recommend resuming your medications Pending Studies at Discharge: No Stand-Alone Forms: My [place], Smoking Cessation Medications and DC Order Prescriptions: Continued furosemide [Lasix] 20 mg tablet 20 mg PO DAILY 10 Days Qty: 10 RF: 0 benzonatate 200 mg capsule 200 mg PO TID PRN (Reason: cough) Qty: 30 RF: 0 nystatin 100,000 unit/mL suspension See Rx Instructions .Route .COMPLEX Qty: 250 RF: 0 cholecalciferol (vitamin D3) 2,000 unit tablet 2,000 units PO DAILY Qty: 30 RF: 0 cetirizine [Zyrtec] 10 mg tablet 10 mg PO DAILY PRN (Reason: Allergy Symptoms) RF: 0 prednisone 20 mg tablet See Rx Instructions .Route .COMPLEX Qty: 11 RF: 0 albuterol sulfate [Ventolin HFA] 90 mcg/actuation HFA aerosol inhaler See Rx Instructions inhalation .COMPLEX PRN (Reason: shortness of breath or wheezing) Qty: 18 RF: 0 doxycycline hyclate 100 mg tablet 100 mg PO BID 10 Days Qty: 20 RF: 0 levothyroxine 75 mcg tablet 75 mcg PO DAILY Qty: 90 RF: 1 naproxen sodium [Aleve] 220 mg Tablet 220 mg PO DAILY PRN (Reason: Pain) RF: 0 Discharge Orders: Discharge Order (Routine); Ordered 02/21/21 Ordered By: Danie Jacobson/Other Patient Handouts: Controlling High Blood Pressure, Blood Pressure Check Steps, ED Heart Disease Education Admission Data Admit Date/Time: 02/20/21 16:03 Attending Provider: Danie Rodriguez Admit Provider: Josue Davila Primary Care Provider: Candy Barajas Other Providers: Josue Davila Other Interventions: Discharge Summary Assessment (RN) Last Done: 02/21/21 17:13 Coding Level of Care Code 61837 OBS Care - Discharge Diagnoses Dizziness R42 Hypothyroidism E03.9 Hypertension I10 Prediabetes R73.03
== END 2021-02-21 17:30 | disposition home or self-care (01) ==
LOC: 2N 10:51 → ED 10:51 → SUATTDRO 16:03 → 2N 18:41

== ENCOUNTER 2021-10-01 07:52 | Inpatient (IN) ==
[2021-10-01] MEDS ORDERED: SODIUM CHLORIDE 0.9% 1000ML 1,000 ML IV ONE (08:14)
[2021-10-01] MEDS ORDERED: KETOROLAC TROMETHAMINE 15 MG/ML VIAL IV STA (08:14)
--- NOTE | 2021-10-01 08:20 | Emergency Department Note ---
History of Present Illness General Chief complaint: Abdominal Pain Stated complaint: SEVERE STOMACH CRAMPS Time Seen by Provider: 10/01/21 07:57 Source: patient Mode of arrival: ambulatory Limitations: no limitations History of Present Illness Maximum Pain Intensity: 10 Patient is a 71-year-old female who presents to the emergency department for evaluation of abdominal pain. Patient reports that she had some lower abdominal pain/cramping for the past 3 days. She had a similar episode of symptoms last weekend but states that it resolved. She does report that she has some urgency to have a bowel movement, but much comes out when she goes. Stools have been loose but she denies diarrhea. She denies nausea/vomiting or fevers. Pain is worse with walking and movement. She has not taken any medication for the pain. She had a colonoscopy 1 month ago and states that she had 4 polyps removed, one was precancerous. She does report a history of diverticulitis, unsure if this feels similar. Home Medications Medication Instructions Recorded Confirmed Type cetirizine 10 mg tablet (Zyrtec) 10 mg PO DAILY PRN 02/03/21 10/01/21 History albuterol sulfate 90 mcg/actuation 2 puff INHALATION Q4 PRN 06/11/21 10/01/21 History aerosol inhaler (Ventolin HFA) multivitamin 1 tab PO DAILY 06/11/21 10/01/21 History levothyroxine 75 mcg tablet 75 mcg PO DAILYBB #90 tab 08/08/21 10/01/21 Rx Allergies Allergy/AdvReac Type Severity Reaction Status Date / Time nystatin Allergy Severe heart races Verified 10/01/21 11:15 adhesive Allergy Mild SKIN Verified 10/01/21 11:15 IRRITATION Past Med/Surg History Medical History Allergic rhinitis Chronic constipation Diverticulosis Eczema History of COVID-19 04/2021>LAST DX "HAD 2X">PT STATES NO SYMPTOMS Hypertension Hypothyroidism Hypothyroidism Prediabetes PT DENIES Pulmonary nodule Venous insufficiency Surgical History History of appendectomy History of section X 1 History of colonoscopy History of total abdominal hysterectomy and bilateral salpingo-oophorectomy S/P cataract extraction RT/LEFT S/P thyroid biopsy THYROID NODULES--BENIGN [place] teeth removed Family History Father Esophageal cancer Alcohol abuse Lung disease Hypertension Mother Myocardial infarction, Onset Age: 40 Colorectal cancer, Onset Age: 74 Lung disease Hypertension Brother Alcohol abuse Heart disease Hypertension Other Lung cancer No family history of adverse response to anesthesia Social History Smoking Status: Never smoker Second Hand Exposure: Yes; Do You Dip or Chew Tobacco: No; Hx Alcohol Use: No Hx Substance Use: No Preferred Language: Kiswahili Communication Ability: Effective Visual Impairment: No Limitations Hearing Ability: Normal [employer]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 Beliefs That Will Affect Care: None marital status: Current Living Situation: Spouse current occupational status: employed Other Information That Helps Us Care for You: No Feels Safe at Home: Yes Safety Concerns: Feels Safe At This Time Childhood Exposure to Second-Hand Smoke: Yes Diet Comment: does not follow a diet caffeine: Yes during the past year weight has: remained stable Dental Care, Regularly: No Physical Activity Frequency: Daily Physical Activity Frequency Comment: work Seatbelt Use: always Sunscreen Use: No Assistive Devices: Glasses Review of Systems A total of 10 systems reviewed and were otherwise negative Physical Exam Vital Signs Vital Signs - 24 hr 10/01/21 07:54 10/01/21 09:50 Temperature 36.8 C Temperature Source Temporal Artery Scan Pulse Rate 88 Pulse Rate [Radial] 79 Pulse Rhythm Regular Pulse Rhythm [Radial] Regular Pulse Strength Normal Respiratory Rate 20 18 Respiratory Effort / Characteristics Non-Labored Spontaneous Non-Labored Respiratory Depth Normal Normal Respiratory Pattern Regular Regular Blood Pressure 164/85 H Blood Pressure [Right Arm] 171/94 H Blood Pressure Mean 111 Blood Pressure Mean [Right Arm] 119 Blood Pressure Position Sitting Pulse Oximetry 98 100 Oxygen Delivery Method Room Air Room Air Sepsis Recent Fever Within 48 Hours No Sepsis New/Unexplained Change in Mental Status N/A Sepsis Action Taken by Nursing No Action Required VITALS: Vitals are noted on the nurse's note and reviewed by myself. GENERAL: This is a 71-year-old female, in no acute distress, well-developed well-nourished. SKIN: The skin was without rashes. EYES: Pupils equal round and reactive to light and accommodation. MOUTH: Mucous membranes moist. Tonsils are not enlarged. Pharynx without erythema or exudate. NECK: Supple without nuchal rigidity. No lymphadenopathy. HEART: Regular rate and rhythm without murmurs gallops or rubs. LUNGS: Clear to auscultation bilaterally without wheezes, rales or rhonchi. No retractions or accessory muscle use. ABDOMEN: Positive bowel sounds x 4. Soft, moderate tenderness to palpation with mild guarding in the right lower quadrant. Mild tenderness across lower abdomen. NEURO: Patient was alert and oriented to person place and time. Course Administered Medications Sodium Chloride (Nss 1000ml) 1,000 mls @ 125 mls/hr IV .Q8H LISE Stop: 10/31/21 12:55 Last Admin: 10/01/21 13:41 Dose: 125 mls/hr Documented by: [id number] Piperacillin Sod/Tazobactam (Sod 3.375 gm/ Dextrose) 115 mls @ 28.75 mls/hr IV Q8H LISE; Protocol Stop: 10/11/21 14:59 Last Admin: 10/01/21 14:52 Dose: 28.8 mls/hr Documented by: [id number] Discontinued Medications Sodium Chloride (Nss 1000ml) 1,000 mls @ 999 mls/hr IV .Q1H1M ONE Stop: 10/01/21 09:14 Last Infusion: 10/01/21 09:28 Dose: 0 mls/hr Documented by: [id number] Admin: 10/01/21 08:27 Dose: 999 mls/hr Documented by: [id number] Piperacillin Sod/Tazobactam (Sod 3.375 gm/ Dextrose) 100 ml in 115 mls @ 230 mls/hr IV NOW STA Stop: 10/01/21 10:37 Last Infusion: 10/01/21 11:14 Dose: 0 mls/hr Documented by: [id number] Admin: 10/01/21 10:39 Dose: 230 mls/hr Documented by: [id number] Ioversol (Optiray 320 100ml) 94 ml IV ONCE ONE Stop: 10/01/21 09:16 Last Admin: 10/01/21 09:16 Dose: 94 ml Documented by: [id number] Ketorolac Tromethamine (Ketorolac Tromethamine 15 Mg/Ml Vial) 15 mg IV NOW STA Stop: 10/01/21 08:15 Last Admin: 10/01/21 08:30 Dose: 15 mg Documented by: [id number] Medical Decision Making Differential Diagnosis Appendicitis, ovarian cyst, ovarian torsion, TOA, PID, infections, diverticulitis, UTI, obstruction, mesenteric ischemia, aortic pathology, inflammatory bowel disease, renal colic, PUD, pancreatitis, biliary pathology, hernia, volvulus, constipation, as well as other pathologies. Home Medications Current Medication List: was personally reviewed by me Laboratory Data Attestation: I reviewed the patient's lab results. Result diagrams: 10/01/21 08:26 10/01/21 08:26 Lab Results 10/01/21 10/01/21 10/01/21 Range/Units 08:26 08:26 08:55 WBC 12.30 H (4.8-10.8) K/uL RBC 4.00 L (4.2-5.4) M/uL Hgb 12.4 (12.0-16.0) g/dL Hct 38.4 (37-47) % MCV 96.0 (80-100) fL MCH 31.0 (25-34) pg MCHC 32.3 (32-36) g/dL RDW Std Deviation 77.6 H (36.4-46.3) fL RDW Coeff of García 22.4 H (11.5-14.5) % Plt Count 289 (130-400) K/uL MPV 9.9 (7.4-10.4) fL Immature Gran % (Auto) 0.8 % Neut % (Auto) 72.6 % Lymph % (Auto) 14.9 % Gilliam % (Auto) 8.9 % Eos % (Auto) 2.7 % Baso % (Auto) 0.1 % Neut # (Auto) 8.93 H (1.4-6.5) K/uL Lymph # (Auto) 1.83 (1.2-3.4) K/uL Gilliam # (Auto) 1.10 H (0.11-0.59) K/uL Eos # (Auto) 0.33 (0-0.5) K/uL Baso # (Auto) 0.01 (0-0.2) K/uL Immature Gran # (Auto) 0.10 H (0.00-0.02) K/uL Anisocytosis Present Sodium 136 (136-145) mmol/L Potassium 4.3 (3.5-5.1) mmol/L Chloride 103 (98-107) mmol/L Carbon Dioxide 28 (21-32) mmol/L Anion Gap 5 (3-11) BUN 17 (6-23) mg/dl Creatinine 0.73 (0.6-1.2) mg/dl Est Cr Clr Drug Dosing 72.5 ml/min Est GFR ( Amer) 97.4 ml/min Est GFR (Non-Af Amer) 84.0 ml/min BUN/Creatinine Ratio 23.3 H (10-20) Glucose 94 (70-99(Fasting)) mg/dl Calcium 9.1 (8.5-10.1) mg/dl Total Bilirubin 0.5 (0.2-1.0) mg/dl AST 24 (13-39) U/L ALT 21 (7-52) U/L Alkaline Phosphatase 86 (34-104) U/L Total Protein 6.5 (6.0-8.3) gm/dl Albumin 3.7 (3.4-5.0) gm/dl Globulin 2.8 (2.5-4.0) gm/dl Albumin/Globulin Ratio 1.3 (0.9-2) Lipase 19 (11-82) U/L Urine Color Yellow Urine Appearance Clear (Clear) Urine pH 8.5 H (4.5-7.5) Ur Specific Alpha 1.019 (1.000-1.030) Urine Protein Negative (Negative) Urine Glucose (UA) Negative (Negative) Urine Ketones Negative (Negative) Urine Blood Negative (Negative) Urine Nitrite Negative (Negative) Urine Bilirubin Negative (Negative) Urine Urobilinogen Negative (Negative) Ur Leukocyte Esterase Negative (Negative) SARS-CoV-2, RNA, NAAT (NEGATIVE) 10/01/21 Range/Units 10:40 WBC (4.8-10.8) K/uL RBC (4.2-5.4) M/uL Hgb (12.0-16.0) g/dL Hct (37-47) % MCV (80-100) fL MCH (25-34) pg MCHC (32-36) g/dL RDW Std Deviation (36.4-46.3) fL RDW Coeff of García (11.5-14.5) % Plt Count (130-400) K/uL MPV (7.4-10.4) fL Immature Gran % (Auto) % Neut % (Auto) % Lymph % (Auto) % Gilliam % (Auto) % Eos % (Auto) % Baso % (Auto) % Neut # (Auto) (1.4-6.5) K/uL Lymph # (Auto) (1.2-3.4) K/uL Gilliam # (Auto) (0.11-0.59) K/uL Eos # (Auto) (0-0.5) K/uL Baso # (Auto) (0-0.2) K/uL Immature Gran # (Auto) (0.00-0.02) K/uL Anisocytosis Sodium (136-145) mmol/L Potassium (3.5-5.1) mmol/L Chloride (98-107) mmol/L Carbon Dioxide (21-32) mmol/L Anion Gap (3-11) BUN (6-23) mg/dl Creatinine (0.6-1.2) mg/dl Est Cr Clr Drug Dosing ml/min Est GFR ( Amer) ml/min Est GFR (Non-Af Amer) ml/min BUN/Creatinine Ratio (10-20) Glucose (70-99(Fasting)) mg/dl Calcium (8.5-10.1) mg/dl Total Bilirubin (0.2-1.0) mg/dl AST (13-39) U/L ALT (7-52) U/L Alkaline Phosphatase (34-104) U/L Total Protein (6.0-8.3) gm/dl Albumin (3.4-5.0) gm/dl Globulin (2.5-4.0) gm/dl Albumin/Globulin Ratio (0.9-2) Lipase (11-82) U/L Urine Color Urine Appearance (Clear) Urine pH (4.5-7.5) Ur Specific Alpha (1.000-1.030) Urine Protein (Negative) Urine Glucose (UA) (Negative) Urine Ketones (Negative) Urine Blood (Negative) Urine Nitrite (Negative) Urine Bilirubin (Negative) Urine Urobilinogen (Negative) Ur Leukocyte Esterase (Negative) SARS-CoV-2, RNA, NAAT NEGATIVE (NEGATIVE) Imaging Data Attestation: I personally reviewed and interpreted this imaging study as follows: Radiologist's Impression: Abdomen/Pelvis CT 10/01/21 08:[address] WITH IV CONTRAST CT DOSE: 639.45 mGy.cm HISTORY: Acute lower abdominal pain with cramping and diarrhea lower abdominal pain/cramping TECHNIQUE: Multiaxial CT images of the abdomen and pelvis were performed following the IV administration of 94 cc of Optiray, A dose lowering technique was utilized adhering to the principles of ALARA. COMPARISON STUDY: CT abdomen and pelvis 09/01/2020 FINDINGS: Mild subsegmental atelectasis versus scarring of the inferior segment lingula. Resolution of the previously described irregular bibasilar pulmonary nodules. No pneumatosis or pneumoperitoneum. The imaged inferior cardiac chambers are unremarkable. Scattered calcified granulomata within the spleen. Unremarkable pancreas and adrenal glands. The gallbladder and liver appear unremarkable. There is patency of the hepatic and portal veins. Unremarkable kidneys. There is no hydronephrosis. Unremarkable urinary bladder. Atherosclerosis of the aorta without aneurysm. No bowel obstruction. Colonic diverticulosis. There is wall thickening with mucosal hyperemia involving the mid sigmoid colon. Pericolonic inflammation is also noted along with numerous tiny subcentimeter pericolonic lymph nodes. There is an intramural hypodense collection measuring 2.7 x 1.8 x 3.2 cm within the sigmoid colon on image 335 series 3. There is adjacent soft tissue thickening/prominence with increased enhancement of the vaginal cuff measuring 4.1 x 1.9 cm on image 359 series 3. Hysterectomy. Fluid-filled tract from the hypodense collection within the colon wall extends towards the vaginal cuff. There is a possible colorectal fistula on image 338 series 3. No drainable fluid collection. Appendectomy. Unremarkable soft tissues. No acute fracture. IMPRESSION: 1. Acute sigmoid diverticulitis with intramural abscess measuring up to 3.2 cm. Additionally, there is suggestion of a colovaginal and possible colorectal fistula. No pneumoperitoneum or drainable fluid collection. 2. Hysterectomy. Soft tissue thickening and enhancement of the vaginal cuff is likely reactive from the fistula. An enhancing mass is considered less likely. 3. No bowel obstruction. 4. Additional findings as above. ACT 112: Negative or not required by law. The above report was generated using voice recognition software. It may contain grammatical, syntax or spelling errors. Electronically signed by: Gonzalo Grant M.D. 10/01/2021 9:40 AM MDM Narrative Continuous campus monitor: Order was placed for continuous campus monitor. Patient was placed on the campus monitor. Patient was noted to be in normal sinus rhythm at an initial rate of 80 bpm. The patient is a 71-year-old female who presents today complaining of abdominal pain. Labs revealed a leukocytosis of 12,000, otherwise no significant abnormalities. CT of the abdomen/pelvis was performed and showed an acute diverticulitis with abscess formation. Patient was given Zosyn. Case was d iscussed with general surgery, who agreed to consult on the patient. [facility] the patient for further care. Impression & Plan Diverticulitis of intestine with abscess Discharge Plan Visit Data Chief Complaint: Abdominal Pain Stated Complaint: SEVERE STOMACH CRAMPS ED Provider: Sukhdeep Baldwin ED Midlevel Provider: Allison Link Discharge Problem: Diverticulitis of intestine with abscess Patient Disposition: Admitted As Inpatient Discharge Instructions Interventions: ED Discharge Assessment Last Done: 10/01/21 12:45 Discharge Problem: Diverticulitis of intestine with abscess Qualifiers: Diverticulitis site: large intestine Diverticulitis bleeding: unspecified bleeding status Qualified Code(s): K57.20 - Diverticulitis of large intestine with perforation and abscess without bleeding
[2021-10-01 08:49] LABS: Basophils # (auto) 0.01 K/uL (0-0.2); Basophils % (auto) 0.1 %; Eosinophils # (auto) 0.33 K/uL (0-0.5); Eosinophils % (auto) 2.7 %; Hematocrit (blood only) 38.4 % (37-47); Hemoglobin 12.4 g/dL (12.0-16.0); Immature Granulocytes % (auto) 0.8 %; Lymphocytes # (auto) 1.83 K/uL (1.2-3.4); Lymphocytes % (auto) 14.9 %; Mean Corpuscular Hgb Conc 32.3 g/dL (32-36); Mean Platelet Volume 9.9 fL (7.4-10.4); Monocytes % (auto) 8.9 %; Neutrophils # (auto) 8.93 K/uL (1.4-6.5); Neutrophils % (auto) 72.6 %; Platelet Count 289 K/uL (130-400); RDW Coefficient of Variation 22.4 % (11.5-14.5); RDW Standard Deviation 77.6 fL (36.4-46.3)
[2021-10-01 08:56] LABS: Albumin Globulin Ratio 1.3 (0.9-2); Albumin Level 3.7 gm/dl (3.4-5.0); BUN Creatinine Ratio 23.3 (10-20); Bilirubin,Total 0.5 mg/dl (0.2-1.0); Calcium 9.1 mg/dl (8.5-10.1); Creatinine Clr Calc Pharmacy 72.5 ml/min; Est GFR (African American) 97.4 ml/min; Globulin 2.8 gm/dl (2.5-4.0); Potassium 4.3 mmol/L (3.5-5.1); Total Protein 6.5 gm/dl (6.0-8.3)
[2021-10-01 09:06] LABS: Anisocytosis Present
[2021-10-01] MEDS ORDERED: OPTIRAY 320 100ml IV ONE (09:15)
[2021-10-01 09:27] LABS: Appearance Urine Clear (Clear); Bilirubin Urine Negative (Negative); Blood Urine Negative (Negative); Color Urine Yellow; Glucose Urine UA Negative (Negative); Ketones Urine Negative (Negative); Leukocyte Esterase Urine Negative (Negative); Nitrite Urine Negative (Negative); Protein Urine Negative (Negative); Specific Gravity Urine 1.019 (1.000-1.030); Urobilinogen Urine Negative (Negative); pH Urine 8.5 (4.5-7.5)
--- NOTE | 2021-10-01 09:43 | CT Scan Report ---
ABDOMEN AND PELVIS CT WITH IV CONTRAST CT DOSE: 639.45 mGy.cm HISTORY: Acute lower abdominal pain with cramping and diarrhea lower abdominal pain/cramping TECHNIQUE: Multiaxial CT images of the abdomen and pelvis were performed following the IV administrat ion of 94 cc of Optiray, A dose lowering technique was utilized adhering to the principles of ALARA. COMPARISON STUDY: CT abdomen and pelvis 09/01/2020 FINDINGS: Mild subsegmental atelectasis versus scarring of the inferior segment lingula. Resolution o f the previously described irregular bibasilar pulmonary nodules. No pneumatosis or pneumoperitoneum. The imaged inferior cardiac chambers are unremarkable. Scattered calcified granulomata within the sp lito. Unremarkable pancreas and adrenal glands. The gallbladder and liver appear unremarkable. There is patency of the hepatic and portal veins. Unremarkable kidneys. There is no hydronephrosis. Unremarkable urinary bladder. Atherosclerosis of th e aorta without aneurysm. No bowel obstruction. Colonic diverticulosis. There is wall thickening with mucosal hyperemia involving the mid sigmoid colon. Pericolonic inflammation is also noted along with numerous tiny subcentimeter pericolonic lymph nodes. There is an intramural hypodense collection blaze suring 2.7 x 1.8 x 3.2 cm within the sigmoid colon on image 335 series 3. There is adjacent soft tiss ue thickening/prominence with increased enhancement of the vaginal cuff measuring 4.1 x 1.9 cm on janie ge 359 series 3. Hysterectomy. Fluid-filled tract from the hypodense collection within the colon wall extends towards the vaginal cuff. There is a possible colorectal fistula on image 338 series 3. No d rainable fluid collection. Appendectomy. Unremarkable soft tissues. No acute fracture. IMPRESSION: 1. Acute sigmoid diverticulitis with intramural abscess measuring up to 3.2 cm. Additionally, there i s suggestion of a colovaginal and possible colorectal fistula. No pneumoperitoneum or drainable fluid collection. 2. Hysterectomy. Soft tissue thickening and enhancement of the vaginal cuff is likely reactive from t he fistula. An enhancing mass is considered less likely. 3. No bowel obstruction. 4. Additional findings as above. ACT 112: Negative or not required by law. The above report was generated using voice recognition software. It may contain grammatical, syntax o r spelling errors. Electronically signed by: Gonzalo Grant M.D. 10/01/2021 9:40 AM
[2021-10-01] MEDS ORDERED: PIPERACILLIN/TAZOBACTAM 3.375 GM in DEXTROSE 5% 100 ML/100 ML BAG IV STA (10:08)
--- NOTE | 2021-10-01 10:54 | Surgery Consultation ---
Date of Consultation October 01, 2021 Assessment & Plan (1) Abscess of sigmoid colon due to diverticulitis: This is a 71y F with a PMH of hypothyroidism, HTN, pre DM who presents to the [facility] ED on 10/01/21 with complaints of severe abdominal cramping that has worsening in severity since last weekend. She states the pain is in the lower abdomen, worse on the L side. In the ER a CT a/p was performed that revealed acute sigmoid diverticulitis with intramural abscess measuring up to 3.2 cm. Additionally, there is suggestion of a colovaginal and possible colorectal fistula. No pneumoperitoneum or drainable fluid collection. WBC 12 and patient is afebrile and hypertensive in the ERs. On examination patient's abdomen is soft with discomfort to palpation across the lower abdomen, worse on the L side. This is not her first episode of diverticulitis, may have had 3-4x in the past, but never hospitalized. Has never discussed with a surgeon surgical resection. Last colonoscopy 1 month ago, 4 polyps removed, 1 was precancerous. Based on patient's history and clinical findings believe she warrants admission for IV abx and bowel rest. Would keep her NPO with ice chips only for at least the next 24 hours. Okay for IV zosyn. She may require evaluation by a colorectal surgeon once she recovers from this episode given CT scan findings suggestion possible colovaginal fistula? We will follow along, but hopeful patient will recover from this episode with supportive care. Supervising Physician Co-Signing Physician Notes I personally saw and evaluated the patient with Yasmin Larson PA-C and agree with the assessment and plan. 71-year-old female with diverticulitis and small intramural abscess, questionable colovaginal fistula CT images and results personally viewed by me Will admit to the surgical service N.p.o./IV fluids IV antibiotics Monitor her abdominal exam for any peritoneal signs Watch for any fevers or tachycardia She did have a colonoscopy about 6 weeks ago which revealed 4 polyps in the transverse ascending and cecum and sigmoid diverticulosis without any mass If her clinical course worsens she may require exploration History of Present Illness Reason for Consultation: Abdominal pain History of Present Illness This is a 71y F with a PMH of hypothyroidism, HTN, pre DM who presents to the [facility] ED on 10/01/21 with complaints of severe abdominal cramping. The patient reports her discomfort started last weekend and has been progressively getting worse especially yesterday evening into today. She states the pain is in the lower abdomen, worse on the L side. In the ER a CT a/p was performed that revealed acute sigmoid diverticulitis with intramural abscess measuring up to 3.2 cm. Additionally, there is suggestion of a colovaginal and possible colorectal fistula. No pneumoperitoneum or drainable fluid collection. Patient denies any fevers/chills, nausea/vomiting. Has been tolerating a diet without issues. Denies having BM's via vagina. She tells me she has a history of constipation, but that regardless of whether or not her stools are soft or hard she has been experiencing some discomfort and has a hard time passing them. She also reports a history of diverticulitis in the past up to 3-4x but never required hospitalization. Last colonoscopy was this May that revealed some polyps that were removed (one was precancerous) along with diverticulosis and was planned to repeat in 5 years. Prior abdominal surgical history includes a c section, appendectomy, and hysterectomy. Was recently on prednisone for a 5 day course of elbow bursitis. Allergies Allergy/AdvReac Type Severity Reaction Status Date / Time nystatin Allergy Severe heart races Verified 10/01/21 11:15 adhesive Allergy Mild SKIN Verified 10/01/21 11:15 IRRITATION Home Medications Medication Instructions Recorded Confirmed Type cetirizine 10 mg tablet (Zyrtec) 10 mg PO DAILY PRN 02/03/21 10/01/21 History albuterol sulfate 90 mcg/actuation 2 puff INHALATION Q4 PRN 06/11/21 10/01/21 History aerosol inhaler (Ventolin HFA) multivitamin 1 tab PO DAILY 06/11/21 10/01/21 History levothyroxine 75 mcg tablet 75 mcg PO DAILYBB #90 tab 08/08/21 10/01/21 Rx Patient History Medical History Allergic rhinitis Chronic constipation Diverticulosis Eczema History of COVID-19 04/2021>LAST DX "HAD 2X">PT STATES NO SYMPTOMS Hypertension Hypothyroidism Hypothyroidism Prediabetes PT DENIES Pulmonary nodule Venous insufficiency Surgical History History of appendectomy History of section X 1 History of colonoscopy History of total abdominal hysterectomy and bilateral salpingo-oophorectomy S/P cataract extraction RT/LEFT S/P thyroid biopsy THYROID NODULES--BENIGN [place] teeth removed Family History Father Esophageal cancer Alcohol abuse Lung disease Hypertension Mother Myocardial infarction, Onset Age: 40 Colorectal cancer, Onset Age: 74 Lung disease Hypertension Brother Alcohol abuse Heart disease Hypertension Other Lung cancer No family history of adverse response to anesthesia Social History Smoking Status: Never smoker Second Hand Exposure: Yes; Do You Dip or Chew Tobacco: No; Hx Alcohol Use: No Hx Substance Use: No Preferred Language: Tajik Communication Ability: Effective Visual Impairment: No Limitations Hearing Ability: Normal 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 Beliefs That Will Affect Care: None marital status: Current Living Situation: Spouse current occupational status: employed Other Information That Helps Us Care for You: No Feels Safe at Home: Yes Safety Concerns: Feels Safe At This Time Childhood Exposure to Second-Hand Smoke: Yes Diet Comment: does not follow a diet caffeine: Yes during the past year weight has: remained stable Dental Care, Regularly: No Physical Activity Frequency: Daily Physical Activity Frequency Comment: work Seatbelt Use: always Sunscreen Use: No Assistive Devices: Glasses Review of Systems Constitutional: no fever, no chills and no anorexia Respiratory: no dyspnea Gastrointestinal: + abdominal pain, + bloating, + cramping and + problem reported (pain with bm); no nausea, no vomiting and no change in bowel habits Physical Exam Physical Exam: awake/alert, no acute distress Respiratory: normal respiratory effort Gastrointestinal (Abdomen): Inspection/Auscultation: + abdomen distended (mild) and + abdominal surgical scar Percussion/Palpation: + abdomen tender (ttp bilateral lower abdomen, worse on L) and abdomen soft Results & Data ([facility]) Vital Signs (Past 12 Hours) Vital Signs Temp Pulse Pulse Resp BP BP Pulse Ox 10/01/21 09:50 79 18 171/94 H 100 10/01/21 07:54 36.8 C 88 20 164/85 H 98 Diagnostic Findings ABDOMEN AND PELVIS CT WITH IV CONTRAST CT DOSE: 639.45 mGy.cm HISTORY: Acute lower abdominal pain with cramping and diarrhea lower abdominal pain/cramping TECHNIQUE: Multiaxial CT images of the abdomen and pelvis were performed following the IV administration of 94 cc of Optiray, A dose lowering technique was utilized adhering to the principles of ALARA. COMPARISON STUDY: CT abdomen and pelvis 09/01/2020 FINDINGS: Mild subsegmental atelectasis versus scarring of the inferior segment lingula. Resolution of the previously described irregular bibasilar pulmonary nodules. No pneumatosis or pneumoperitoneum. The imaged inferior cardiac chambers are unremarkable. Scattered calcified granulomata within the spleen. Unremarkable pancreas and adrenal glands. The gallbladder and liver appear u nremarkable. There is patency of the hepatic and portal veins. Unremarkable kidneys. There is no hydronephrosis. Unremarkable urinary bladder. Atherosclerosis of the aorta without aneurysm. No bowel obstruction. Colonic diverticulosis. There is wall thickening with mucosal hyperemia involving the mid sigmoid colon. Pericolonic inflammation is also noted along with numerous tiny subcentimeter pericolonic lymph nodes. There is an intramural hypodense collection measuring 2.7 x 1.8 x 3.2 cm within the sigmoid colon on image 335 series 3. There is adjacent soft tissue thickening/prominence with increased enhancement of the vaginal cuff measuring 4.1 x 1.9 cm on image 359 series 3. Hysterectomy. Fluid-filled tract from the hypodense collection within the colon wall extends towards the vaginal cuff. There is a possible colorectal fistula on image 338 series 3. No drainable fluid collection. Appendectomy. Unremarkable soft tissues. No acute fracture. IMPRESSION: 1. Acute sigmoid diverticulitis with intramural abscess measuring up to 3.2 cm. Additionally, there is suggestion of a colovaginal and possible colorectal fistula. No pneumoperitoneum or drainable fluid collection. 2. Hysterectomy. Soft tissue thickening and enhancement of the vaginal cuff is likely reactive from the fistula. An enhancing mass is considered less likely. 3. No bowel obstruction. 4. Additional findings as above. ACT 112: Negative or not required by law. The above report was generated using voice recognition software. It may contain grammatical, syntax or spelling errors. Electronically signed by: Gonzalo Grant M.D. 10/01/2021 9:40 AM PG Care Time/CCT Total # of Minutes Spent Total Time Spent with Patient: Total time spent is greater than 50% in coordination of care (as documented) at patient's floor/unit and/or counseling patient: Coding Level of Care Code 99564 Inpt Consult Level 3 Diagnoses Abscess of sigmoid colon due to diverticulitis K57.20
[2021-10-01] MEDS ORDERED: ONDANSETRON INJ 2 MG/ML 2 ML VIAL IV PRN (12:56)
[2021-10-01] MEDS ORDERED: ACETAMINOPHEN 1000 MG/100 ML IV IV PRN (12:56)
[2021-10-01] MEDS ORDERED: MoRPHine SULFATE 4 MG/ML 1 ML CARP\\VIAL IV PRN (12:56)
[2021-10-01] MEDS ORDERED: ACETAMINOPHEN 1,000 MG/100 ML VIAL IV PRN (13:15)
[2021-10-01] MEDS: SODIUM CHLORIDE 0.9% 1000ML 1,000 ML IV SCH ×2 (13:41→21:46)
[2021-10-01] MEDS: PIPERACILLIN/TAZOBACTAM 3.375 GM in DEXTROSE 5% 100 ML IV SCH ×2 (14:52→23:04)
[2021-10-01] MEDS: MoRPHine SULFATE 2 MG/ML CARP IV PRN (18:47)
[2021-10-02] MEDS: SODIUM CHLORIDE 0.9% 1000ML 1,000 ML IV SCH ×3 (05:39→21:55)
[2021-10-02] MEDS: LEVOTHYROXINE SODIUM 75 MCG TABLET PO SCH (06:24)
[2021-10-02] MEDS: PIPERACILLIN/TAZOBACTAM 3.375 GM in DEXTROSE 5% 100 ML IV SCH ×3 (06:27→22:48)
[2021-10-02 06:31] LABS: Basophils # (auto) 0.01 K/uL (0-0.2); Basophils % (auto) 0.1 %; Eosinophils # (auto) 0.49 K/uL (0-0.5); Eosinophils % (auto) 5.1 %; Hemoglobin 10.6 g/dL (12.0-16.0); Immature Granulocytes # (auto) 0.06 K/uL (0.00-0.02); Immature Granulocytes % (auto) 0.6 %; Lymphocytes # (auto) 1.58 K/uL (1.2-3.4); Lymphocytes % (auto) 16.6 %; Mean Corpuscular Hemoglobin 30.6 pg (25-34); Mean Corpuscular Hgb Conc 32.1 g/dL (32-36); Mean Corpuscular Volume 95.4 fL (80-100); Mean Platelet Volume 9.6 fL (7.4-10.4); Monocytes # (auto) 0.65 K/uL (0.11-0.59); Monocytes % (auto) 6.8 %; Neutrophils # (auto) 6.75 K/uL (1.4-6.5); Neutrophils % (auto) 70.8 %; Platelet Count 254 K/uL (130-400); RDW Coefficient of Variation 22.3 % (11.5-14.5); Red Blood Count 3.46 M/uL (4.2-5.4); White Blood Count 9.54 K/uL (4.8-10.8)
[2021-10-02 06:58] LABS: Anisocytosis Present
[2021-10-02 06:59] LABS: Est GFR (African American) 92.8 ml/min
[2021-10-02 07:00] LABS: BUN Creatinine Ratio 15.8 (10-20); Calcium 8.4 mg/dl (8.5-10.1); Creatinine Clr Calc Pharmacy 69.8 ml/min
--- NOTE | 2021-10-02 08:33 | Surgery Progress Note ---
Date of Service October 02, 2021 Assessment & Plan (1) Abscess of sigmoid colon due to diverticulitis: Plan: improved afebrile, WBC down to 9 keep on ice/sips for today seen with Dr. Groves Admission and Anticipated Discharge Date Admission Date: October 01, 2021 Supervising Physician Co-Signing Physician Notes I personally saw and evaluated the patient with Kem Salmeron PA-C and agree with the assessment and plan. 71-year-old female with diverticulitis and small intramural abscess, questionable colovaginal fistula Keep on sips and chips today She is having slightly less abdominal pain Keep on IV antibiotics Her white count has normalized Continue to monitor for tachycardia or fevers If her clinical course worsens she may require exploration Subjective less pain, BM yesterday Physical Exam Constitutional: no acute distress Gastrointestinal (Abdomen): Inspection/Auscultation: abdomen not distended Percussion/Palpation: + abdomen tender (mild, lower ) and abdomen soft Results & Data ([facility]) Vital Signs (Past 12 Hours) Vital Signs Temp Pulse Resp BP Pulse Ox 10/02/21 05:39 36.9 C 74 16 130/79 96 10/01/21 22:04 36.6 C 70 18 106/66 94 PG Care Time/CCT Total # of Minutes Spent Total Time Spent with Patient: Total time spent is greater than 50% in coordination of care (as documented) at patient's floor/unit and/or counseling patient: Coding Level of Care Code 66276 Subseq Hosp Care Lvl 1 Diagnoses Abscess of sigmoid colon due to diverticulitis K57.20
[2021-10-02] MEDS: MoRPHine SULFATE 2 MG/ML CARP IV PRN (19:45)
[2021-10-03] MEDS: SODIUM CHLORIDE 0.9% 1000ML 1,000 ML IV SCH ×3 (05:46→23:15)
[2021-10-03] MEDS: PIPERACILLIN/TAZOBACTAM 3.375 GM in DEXTROSE 5% 100 ML IV SCH ×3 (06:35→23:15)
[2021-10-03] MEDS: LEVOTHYROXINE SODIUM 75 MCG TABLET PO SCH (07:25)
--- NOTE | 2021-10-03 08:49 | Surgery Progress Note ---
Date of Service October 03, 2021 Assessment & Plan (1) Abscess of sigmoid colon due to diverticulitis: Plan: She is feeling much improved and is without fevers or tachycardia Will trial clear liquid diet today WBC was normal yesterday, will await today's results We will keep her on IV antibiotics today If she tolerates a diet without increasing abdominal pain, will advance her with a tentative plan for discharge tomorrow Admission and Anticipated Discharge Date Admission Date: October 01, 2021 Subjective Patient seen and examined. Afebrile. No acute events overnight. She had a BM yesterday. No nausea or vomiting. She states her abdominal pain is much improved since admission. Review of Systems Constitutional: no fever and no chills Physical Exam Constitutional: WD/WN, vitals as above Gastrointestinal (Abdomen): Inspection/Auscultation: abdomen normal to inspection; abdomen not distended Percussion/Palpation: + abdomen tender (Minimally suprapubic) and abdomen soft; no guarding, abdomen not rigid and no hernia Results & Data ([facility]) Vital Signs (Past 12 Hours) Vital Signs Temp Pulse Resp BP Pulse Ox 10/03/21 05:25 36.7 C 77 15 160/90 H 93 10/02/21 21:47 36.9 C 76 16 149/74 H 94 PG Care Time/CCT Total # of Minutes Spent Total Time Spent with Patient: Total time spent is greater than 50% in coordination of care (as documented) at patient's floor/unit and/or counseling patient: Coding Level of Care Code 54431 Subseq Hosp Care Lvl 1 Diagnoses Abscess of sigmoid colon due to diverticulitis K57.20
[2021-10-03 09:12] LABS: Basophils # (auto) 0.01 K/uL (0-0.2); Basophils % (auto) 0.1 %; Eosinophils # (auto) 0.44 K/uL (0-0.5); Eosinophils % (auto) 4.8 %; Hematocrit (blood only) 33.5 % (37-47); Immature Granulocytes # (auto) 0.05 K/uL (0.00-0.02); Immature Granulocytes % (auto) 0.5 %; Lymphocytes # (auto) 1.44 K/uL (1.2-3.4); Lymphocytes % (auto) 15.8 %; Mean Corpuscular Hemoglobin 31.4 pg (25-34); Mean Corpuscular Hgb Conc 32.8 g/dL (32-36); Mean Corpuscular Volume 95.7 fL (80-100); Mean Platelet Volume 9.2 fL (7.4-10.4); Monocytes # (auto) 0.76 K/uL (0.11-0.59); Monocytes % (auto) 8.3 %; Neutrophils # (auto) 6.42 K/uL (1.4-6.5); Neutrophils % (auto) 70.5 %; Platelet Count 281 K/uL (130-400); RDW Coefficient of Variation 21.4 % (11.5-14.5); RDW Standard Deviation 74.3 fL (36.4-46.3); White Blood Count 9.12 K/uL (4.8-10.8)
[2021-10-03 09:23] LABS: Calcium 8.7 mg/dl (8.5-10.1); Creatinine Clr Calc Pharmacy 58.3 ml/min; Est GFR (African American) 74.6 ml/min; Est GFR (Non-African American) 64.4 ml/min; Potassium 3.9 mmol/L (3.5-5.1)
[2021-10-03 09:48] LABS: Anisocytosis Present
[2021-10-04] MEDS: SODIUM CHLORIDE 0.9% 1000ML 1,000 ML IV SCH (06:07)
[2021-10-04] MEDS: LEVOTHYROXINE SODIUM 75 MCG TABLET PO SCH (06:30)
[2021-10-04] MEDS: PIPERACILLIN/TAZOBACTAM 3.375 GM in DEXTROSE 5% 100 ML IV SCH (06:30)
[2021-10-04 07:55] LABS: Basophils # (auto) 0.01 K/uL (0-0.2); Basophils % (auto) 0.1 %; Eosinophils # (auto) 0.46 K/uL (0-0.5); Eosinophils % (auto) 5.2 %; Hematocrit (blood only) 33.9 % (37-47); Hemoglobin 10.9 g/dL (12.0-16.0); Immature Granulocytes # (auto) 0.05 K/uL (0.00-0.02); Immature Granulocytes % (auto) 0.6 %; Lymphocytes # (auto) 1.48 K/uL (1.2-3.4); Lymphocytes % (auto) 16.6 %; Mean Corpuscular Hemoglobin 30.4 pg (25-34); Mean Corpuscular Hgb Conc 32.2 g/dL (32-36); Mean Corpuscular Volume 94.7 fL (80-100); Mean Platelet Volume 9.6 fL (7.4-10.4); Monocytes # (auto) 0.71 K/uL (0.11-0.59); Neutrophils # (auto) 6.18 K/uL (1.4-6.5); Neutrophils % (auto) 69.5 %; Platelet Count 325 K/uL (130-400); RDW Coefficient of Variation 21.5 % (11.5-14.5); RDW Standard Deviation 73.5 fL (36.4-46.3); Red Blood Count 3.58 M/uL (4.2-5.4); White Blood Count 8.89 K/uL (4.8-10.8)
--- NOTE | 2021-10-04 08:07 | Surgery Progress Note ---
Date of Service October 04, 2021 Assessment & Plan (1) Diverticulitis of intestine with abscess: Plan: Patient feeling better than admission She is afebrile, not tachycardic WBC 8 Tolerating clear liquids. Will advance to fulls this AM Abdomen soft with some lingering lower abdominal discomfort to palpation. But improved Pending toleration of diet advancement, possible consideration to discharge to home later today on a course of po abx Admission and Anticipated Discharge Date Admission Date: October 01, 2021 Supervising Physician Co-Signing Physician Notes I personally saw and evaluated the patient with Yasmin Romano PA-C and agree with the assessment and plan. 71-year-old female with diverticulitis and small intramural abscess, questionable colovaginal fistula Advance to full's Minimal abdominal pain at this point Keep on IV antibiotics as inpatient Her white count has normalized She tolerates full liquids advance to low fiber diet and possibly discharge home later this afternoon She will need a 2-week course of p.o. Augmentin as well as a low fiber diet on discharge Subjective Patient feeling better than admission. Still having some lower abdominal discomfort, but it is manageable. Tolerating the clear liquids. Says she has been up all night going to the bathroom, both with peeing and having loose stools. Her bottom is sore due to history of hemorrhoids. Physical Exam Physical Exam: awake/alert, no distress. sitting up in chair Gastrointestinal (Abdomen): Inspection/Auscultation: abdomen not distended Percussion/Palpation: + abdomen tender (mild discomfort in the lower abdomen ) and abdomen soft Results & Data ([facility]) Vital Signs (Past 12 Hours) Vital Signs Temp Pulse Resp BP Pulse Ox 10/04/21 07:00 36.9 C 71 16 173/86 H 98 10/03/21 22:38 36.9 C 71 16 148/86 H 96 PG Care Time/CCT Total # of Minutes Spent Total Time Spent with Patient: Total time spent is greater than 50% in coordination of care (as documented) at patient's floor/unit and/or counseling patient: Coding Level of Care Code 43691 Subseq Hosp Care Lvl 1 Diagnoses Diverticulitis of intestine with abscess K57.20 Diverticulitis bleeding: unspecified bleeding status Diverticulitis site: large intestine (1) Diverticulitis of intestine with abscess Diverticulitis bleeding: unspecified bleeding status Diverticulitis site: large intestine Qualified Code(s): K57.20 - Diverticulitis of large intestine with perforation and abscess without bleeding
[2021-10-04 08:19] LABS: BUN Creatinine Ratio 8.5 (10-20); Creatinine Clr Calc Pharmacy 64.7 ml/min; Est GFR (African American) 84.6 ml/min; Potassium 3.6 mmol/L (3.5-5.1)
[2021-10-04 08:36] LABS: Anisocytosis Present
--- NOTE | 2021-10-06 14:40 | Discharge Summary ---
Date of Service October 04, 2021 Principal Diagnosis Diverticulitis with abscess Discharge Exam Constitutional WD/WN, vitals as above Gastrointestinal (Abdomen) normal bowel sounds, soft, nontender, no hepatosplenomegaly Discharge Data Allergies Allergy/AdvReac Type Severity Reaction Status Date / Time nystatin Allergy Severe heart races Verified 10/05/21 15:44 adhesive Allergy Mild SKIN Verified 10/05/21 15:44 IRRITATION Ordered Studies 10/01/21 08:13 CT abd pelvis IV con only Stat Hospital Course (1) Abscess of sigmoid colon due to diverticulitis: 71 y/o female presented to ED with severe abdominal cramping. White count was 12,[address] showed diverticulitis with 3 cm abscess and possible colovaginal fistula. She was admitted to the surgical service and started on IV Zosyn. She was kept NPO for approximately 36 hours and then started on clear liquid diet once her pain had improved. She was then able to tolerate an advancing diet over the next 24 hours. White count had also normalized. On day 3 she was stable for discharge home on oral antibiotics and will follow-up in 2 weeks. Total Time Total Time Spent Total Time Spent (In Minutes): 15 Discharge Plan Discharge Items Patient Disposition: Home - Self-Care Reason For Visit: SIGMOID DIVERTICULITIS Discharge Diagnosis: sigmoid diverticulitis Activity: Per Instructions section Lifting: Gradually increase as tolerated Bathing: No limitations Exercise/Sports: Gradually increase as tolerated Driving/Machine Use: Resume 1 day after discharge Non-emergency contact: Primary Care Provider and Surgeon Call non-emergency contact if: you have any medication questions, your symptoms worsen, your pain is worsening, you have a fever and your temperature is above 101.5 Follow-up/Referrals: Candy Barajas DO [Primary Care Provider] - Julio Groves DO [Physician] - 10/19/21 10:30 am () Diet: Low Fiber Addtl Attending Provider Instructions: Continue on a low fiber diet over the next couple of weeks until your bowels nor malize Complete the full course of antibiotic prescribed to you Pending Studies at Discharge: No Stand-Alone Forms: My [facility] Fast Drinks, Work/School Release, Smoking Cessation Medications and DC Order Prescriptions: New amoxicillin-pot clavulanate 875-125 mg tablet 1 tab PO BID Qty: 24 RF: 0 Continued cetirizine [Zyrtec] 10 mg tablet 10 mg PO DAILY PRN (Reason: Allergy Symptoms) RF: 0 multivitamin Tablet 1 tab PO DAILY RF: 0 albuterol sulfate [Ventolin HFA] 90 mcg/actuation HFA aerosol inhaler 2 puff inhalation Q4 PRN (Reason: shortness of breath or wheezing) RF: 0 No Action fluconazole [Diflucan] 100 mg tablet See Rx Instructions PO DAILY 7 Days Qty: 8 RF: 0 levothyroxine 100 mcg tablet 100 mcg PO DAILYBB Qty: 90 RF: 1 hydroxyzine pamoate [Vistaril] 25 mg capsule 25 mg PO Q8H PRN (Reason: anxiety/sleep) 5 Days Qty: 15 RF: 0 Discharge Orders: Discharge Order (Routine); Ordered 10/04/21 Ordered By: Kem Jacobson/Other Patient Handouts: Low-Fiber Diet, Diverticulosis and Diverticulitis, Abscess Abx Tx Admission Data Admit Date/Time: 10/01/21 11:05 Attending Provider: Julio Groves Admit Provider: Julio Groves Primary Care Provider: Candy Barajas Other Interventions: Discharge Summary Assessment (RN) Last Done: 10/04/21 14:38 Coding Level of Care Code D/C DAY MANAGEMENT <30 MINS Diagnoses Abscess of sigmoid colon due to diverticulitis K57.20
== END 2021-10-04 14:59 | disposition home or self-care (01) | DRG 392 ==
LOC: ED 07:52 → 3W 11:05